=== PATIENT | male | born 1985 | race Hispanic/Latino ===

== ENCOUNTER 2020-05-20 07:50 | Inpatient (IN) | payer OTHER ==
--- NOTE | 2020-05-20 08:29 | Event Note ---
ED Screening Note Date of service: 05/20/20 Time: 08:28 ED Screening Note: Pleasant 35-year-old male with a past medical history of GERD, hypertension, anxiety who presents to the ER with chief complaint of a few months of urinary frequency, polydipsia, generalized weakness. He also reports he started having black stools yesterday. In triage she is tachycardic and diaphoretic. This initial assessment/diagnostic orders/clinical plan/treatment(s) is/are subject to change based on patients health status, clinical progression and re- assessment by fellow clinical providers in the ED. Further treatment and workup at subsequent clinical providers discretion. Patient/guardian urged not to elope from the ED as their condition may be serious if not clinically assessed and managed. Initial orders include: CBC, CMP, type and screen, urinalysis, lipase, EKG, troponin, chest x-ray, normal saline fluid bolus
[2020-05-20] MEDS ORDERED: SODIUM CHLORIDE 0.9% 1000 ML 1,000 ML IV ONE ×2 (08:30→10:23)
[2020-05-20] MEDS ORDERED: PANTOPRAZOLE 40 MG INJ IV ONE (08:53)
[2020-05-20 09:11] LABS: Basophils # (Auto) 0.2 K/mm3 (0.0-0.1); Eosinophils % (Auto) 0.7 % (0.0-4.3); Monocytes # (Auto) 0.8 K/mm3 (0.0-0.8)
--- NOTE | 2020-05-20 09:15 | Emergency Department Report ---
ED General Adult HPI - General Chief complaint: Hyperglycemia Stated complaint: WEAKNESS Time Seen by Provider: 05/20/20 08:49 Source: patient, EMS Mode of arrival: Wheelchair Limitations: Physical Limitation - History of Present Illness Initial comments: This is a 35-year old morbidly obese male who states that he has no prior history of diabetes. However, he does complain of the polys for several weeks if not months. He states that he went to a free clinic about 3 weeks ago but was not told he was diabetic nor having elevated blood sugar. He reports over the last 24 hours several bouts of black stools. 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 He claims he was not on Lovenox at the time. However Lovenox is currently listed as an allergy. He is giving a limited history and that will require further investigation. He is not currently on anticoagulation. He denies a history of peptic ulcer disease. He states his previous black stool was related to his mesenteric thrombosis. He had a ciliotomy and several inches of small intestine removed. Patient has been short of breath as well over the past 24 hours. He has been sweaty and thinks he has had a fever but does not have a thermometer. -: days(s) (Black stools and shortness of breath for 1 day ), week(s) (Polys for weeks) Location: abdomen (States he has swelling about his surgical incision but is not complaining of acute pain specifically there) Consistency: intermittent Improves with: none Worsens with: none Associated Symptoms: diaphoresis, fever/chills, shortness of breath, weakness. denies: nausea/vomiting Treatments Prior to Arrival: none - Related Data Allergies Allergy/AdvReac Type Severity Reaction Status Date / Time Cephalosporins Allergy Hives Verified 05/20/20 08:36 enoxaparin [From Lovenox] Allergy Rash Verified 05/20/20 08:36 ED Review of Systems ROS: Stated complaint: WEAKNESS Other details as noted in HPI Constitutional: chills, fever Eyes: denies: eye pain, vision change ENT: denies: ear pain, throat pain Respiratory: shortness of breath. denies: cough Cardiovascular: denies: chest pain, palpitations Endocrine: no symptoms reported, increased hunger, increased thirst, increased urine Gastrointestinal: abdominal pain (Near the surgical incision), diarrhea, melena. denies: nausea Genitourinary: frequency. denies: urgency, dysuria Musculoskeletal: denies: back pain, joint swelling, arthralgia Skin: denies: rash, lesions Neurological: denies: headache, weakness, paresthesias Psychiatric: anxiety. denies: depression Hematological/Lymphatic: denies: easy bleeding, easy bruising ED Past Medical Hx - Past Medical History Previous Medical History?: Yes Hx Hypertension: Yes Hx GERD: Yes Hx Asthma: Yes Additional medical history: Congenital adrenal hyperplasia, Anxiety, Sleep apnea - Surgical History Past Surgical History?: Yes Additional Surgical History: Mesenteric venous thrombosis 2016 - Social History Smoking Status: Never Smoker Substance Use Type: None ED Physical Exam - General Limitations: Physical Limitation General appearance: obese, other (Sweaty) - Head Head exam: Present: atraumatic, normocephalic - Eye Eye exam: Present: PERRL, EOMI. Absent: scleral icterus - ENT ENT exam: Present: mucous membranes dry, other (Conjunctiva pale) - Neck Neck exam: Absent: tenderness, meningismus - Respiratory Respiratory exam: Present: normal lung sounds bilaterally, other (Tachypneic) - Cardiovascular Cardiovascular Exam: Present: tachycardia. Absent: systolic murmur, diastolic murmur - GI/Abdominal GI/Abdominal exam: Present: soft, distended (Somewhat), normal bowel sounds, hernia (Incisional hernia which is tender but probably reducible). Absent: tenderness (No diffuse abdominal tenderness), guarding, rebound, rigid - Rectal Rectal exam: Present: normal inspection, normal rectal tone, heme (+) stool, black stool - Extremities Exam Extremities exam: Present: other (Pretibial edema). Absent: calf tenderness - Back Exam Back exam: Present: normal inspection (Limited exam) - Neurological Exam Neurological exam: Present: alert, oriented X3, CN II-XII intact (As tested). Absent: motor sensory deficit - Psychiatric Psychiatric exam: Present: agitated (Mildly), anxious - Skin Skin exam: Present: diaphoretic (Somewhat), pallor ED Course Vital Signs 05/20/20 05/20/20 05/20/20 08:30 09:16 09:31 Temperature 97.6 F Pulse Rate 127 H 121 H 120 H Respiratory 22 27 H Rate Blood Pressure 113/74 116/70 O2 Sat by Pulse 98 97 97 Oximetry - Reevaluation(s) Reevaluation #1: We will be initiating IV fluids giving Protonix. Screening for sepsis. CT of the abdomen and pelvis is planned. GI consult when adequate data. Obviously admission is anticipated. 05/20/20 09:19 Reevaluation #2: Saline bolus. Sepsis screening. White count is essentially normal. Decision to utilize empiric antibiotics is deferred to the hospitalist. Discussed with Dr. Dumont. Patient to be admitted to the IMCU. GI consultation. I am going to order a CT of the abdomen and pelvis with contrast considering the patient's apparent incisional hernia and history of mesenteric thrombosis. 05/20/20 11:14 05/20/20 11:15 ED Medical Decision Making - Lab Data Result diagrams: 05/20/20 08:38 05/20/20 09:00 Laboratory Results - last 24 hr 05/20/20 05/20/20 05/20/20 08:38 08:38 08:38 WBC 10.9 RBC 4.47 Hgb 15.1 Hct 43.4 MCV 97 H MCH 34 H MCHC 35 H RDW 14.3 Plt Count 511 H Lymph % (Auto) 17.2 [place]uther[place] % (Auto) 7.0 Eos % (Auto) 0.7 Baso % (Auto) 2.2 H Lymph # (Auto) 1.9 [place]utherford # (Auto) 0.8 Eos # (Auto) 0.1 Baso # (Auto) 0.2 H Seg Neutrophils % 72.9 H Seg Neutrophils # 7.9 H PT 12.7 INR 0.96 APTT 28.6 VBG pH Sodium Potassium Chloride Carbon Dioxide Anion Gap BUN Creatinine Estimated GFR BUN/Creatinine Ratio Glucose Ketones Quantitative Calcium Magnesium Total Bilirubin Direct Bilirubin Indirect Bilirubin AST ALT Alkaline Phosphatase Total Creatine Kinase CK-MB (CK-2) CK-MB (CK-2) Rel Index Troponin T < 0.010 NT-Pro-B Natriuret Pep Total Protein Albumin Albumin/Globulin Ratio Lipase 16 Blood Type Antibody Screen 05/20/20 05/20/20 05/20/20 08:38 09:00 09:00 WBC RBC Hgb Hct MCV MCH MCHC RDW Plt Count Lymph % (Auto) [place]uther[place] % (Auto) Eos % (Auto) Baso % (Auto) Lymph # (Auto) [place] # (Auto) Eos # (Auto) Baso # (Auto) Seg Neutrophils % Seg Neutrophils # PT INR APTT VBG pH Sodium 114 L* Potassium 7.0 H* Chloride 72.9 L Carbon Dioxide 8 L* Anion Gap 40 BUN 37 H Creatinine 1.2 Estimated GFR > 60 BUN/Creatinine Ratio 31 Glucose 552 H* Ketones Quantitative Moderate Calcium 9.7 Magnesium 1.90 Total Bilirubin 0.50 Direct Bilirubin 0.4 H Indirect Bilirubin 0.1 AST < 5 L ALT < 5 L Alkaline Phosphatase 155 H Total Creatine Kinase < 7 L CK-MB (CK-2) < 1.0 CK-MB (CK-2) Rel Index 0.0 Troponin T NT-Pro-B Natriuret Pep 53.42 Total Protein 7.9 Albumin 3.8 L Albumin/Globulin Ratio 0.9 Lipase Blood Type O NEGATIVE Antibody Screen Negative 05/20/20 09:00 WBC RBC Hgb Hct MCV MCH MCHC RDW Plt Count Lymph % (Auto) Ruther[place] % (Auto) Eos % (Auto) Baso % (Auto) Lymph # (Auto) [place] # (Auto) Eos # (Auto) Baso # (Auto) Seg Neutrophils % Seg Neutrophils # PT INR APTT VBG pH 7.240 L Sodium Potassium Chloride Carbon Dioxide Anion Gap BUN Creatinine Estimated GFR BUN/Creatinine Ratio Glucose Ketones Quantitative Calcium Magnesium Total Bilirubin Direct Bilirubin Indirect Bilirubin AST ALT Alkaline Phosphatase Total Creatine Kinase CK-MB (CK-2) CK-MB (CK-2) Rel Index Troponin T NT-Pro-B Natriuret Pep Total Protein Albumin Albumin/Globulin Ratio Lipase Blood Type Antibody Screen - EKG Data -: EKG Interpreted by Me EKG shows normal: sinus rhythm Rate: tachycardia - EKG Data Interpretation: other (Peaked T waves are suggestive of hyperkalemia) - Radiology Data Radiology results: image reviewed (Chest x-ray no acute process) Critical Care Time: Yes Critical care time in (mins) excluding proc time.: 70 Critical care attestation.: If time is entered above; I have spent that time in minutes in the direct care of this critically ill patient, excluding procedure time. ED Disposition Clinical Impression: Hyponatremia, Upper GI bleeding DKA (diabetic ketoacidoses) Qualifiers: Diabetes mellitus type: type 2 Diabetes mellitus complication detail: without coma Qualified Code(s): E11.10 - Type 2 diabetes mellitus with ketoacidosis without coma Incisional hernia Qualifiers: Obstruction and gangrene presence: without obstruction or gangrene Qualified Code(s): K43.2 - Incisional hernia without obstruction or gangrene; K43.91 - Incisional hernia, without obstruction or gangrene Disposition: 09 OP ADMIT IP TO THIS HOSP Is pt being admited?: Yes Does the pt Need Aspirin: No Condition: Stable Instructions: Diabetic Ketoacidosis (ED) Time of Disposition: 11:18
--- NOTE | 2020-05-20 09:16 | XRay Report ---
CHEST 2 VIEWS INDICATION / CLINICAL INFORMATION: weakness. COMPARISON: None available. FINDINGS: SUPPORT DEVICES: None. HEART / MEDIASTINUM: No significant abnormality. LUNGS / PLEURA: Clear lungs. No significant pleural effusion. No pneumothorax. ADDITIONAL FINDINGS: No significant additional findings. IMPRESSION: 1. No acute abnormality of the chest. Signer Name: Sunil Luciano MD Signed: 05/20/2020 9:11 AM Workstation Name: [id number]
[2020-05-20 09:22] LABS: INR 0.96 (0.87-1.13)
[2020-05-20 09:23] LABS: Partial Thromboplastin Time 28.6 Sec. (24.2-36.6)
[2020-05-20 09:28] LABS: Hematocrit 43.4 % (35.5-45.6); Hemoglobin 15.1 gm/dl (11.8-15.2); Mean Corpuscular Volume 97 fl (84-94); Red Blood Count 4.47 M/mm3 (3.65-5.03)
[2020-05-20 09:29] LABS: Basophils % (Auto) 2.2 % (0.0-1.8); Eosinophils # (Auto) 0.1 K/mm3 (0.0-0.4); Lymphocytes # (Auto) 1.9 K/mm3 (1.2-5.4); Lymphocytes % (Auto) 17.2 % (13.4-35.0); Mean Corpuscular HGB Conc 35 % (32-34); Platelet Count 511 K/mm3 (140-440); Red Cell Distribution Width 14.3 % (13.2-15.2)
[2020-05-20 09:52] LABS: Albumin 3.8 g/dL (3.9-5); BUN/Creatinine Ratio 31; Bilirubin,Direct 0.4 mg/dL (0-0.2); Blood Urea Nitrogen 37 mg/dL (9-20); Calcium 9.7 mg/dL (8.4-10.2); Creatine Kinase MB < 1.0 ng/mL (0.0-4.0); Hemolysis Index 100
[2020-05-20 10:13] LABS: Alanine Aminotransferase < 5 units/L (7-56)
[2020-05-20] MEDS ORDERED: INSULIN REGULAR, HUMAN 100 UNITS/1 ML IV ONE (10:25)
[2020-05-20] MEDS ORDERED: INSULIN REGULAR, HUMAN 100 UNITS in SODIUM CHLORIDE 0.9% 99 ML IV SCH (11:00)
[2020-05-20 12:38] LABS: BUN/Creatinine Ratio 30
[2020-05-20 12:54] LABS: Blood Urea Nitrogen 36 mg/dL (9-20); Calcium 8.5 mg/dL (8.4-10.2); Hemolysis Index 88
--- NOTE | 2020-05-20 13:07 | Cat Scan Report ---
CT ABDOMEN AND PELVIS WITH CONTRAST INDICATION: Incisional hernia, DKA, history of mesenteric thrombosis CONTRAST: 100 cc Omnipaque 300 IV COMPARISON: None available. All CT scans at this location are performed using CT dose reduction for ALARA by means of automated e xposure control. NOTE: Resolution is decreased and artifact is introduced by the patient's size. FINDINGS: Lung bases are clear. The distal esophagus shows possible diffuse wall thickening without a defined mass. No pneumoperitoneum is seen. No free fluid is noted. No lymphadenopathy is seen. No focal inflammator y changes are noted. Liver is massively enlarged and shows fatty infiltration. I do not clearly see an hepatic mass though density is mildly heterogenous. Hepatic length is 30.4 cm. Spleen is elongated and has a length of 1 6.7 cm without significant focal lesion. I see no abnormalities of the gallbladder, bile ducts, or pa ncreas. Kidneys appear within normal limits. No urinary obstructive changes are seen. Appendix is not visualized. Surgical changes are seen in small bowel in the anterior mid abdomen with focal dilatation likely related to the surgery. I do not see significant evidence of bowel obstructi on. Large and unusually shaped lobular and elongated masses are seen involving both adrenal glands, left greater than right. These masses have multiple septations and are largely fat density though with sof t tissue components. There may be small cystic components on the right. The left sided lesion has a v ashlee complex shaped but measures approximately 23 cm in greatest diameter. The right lesion also has a complex shape but measures approximately 14 cm in greatest diameter. No other abdominal masses are s een. I do not see invasion of adjacent structures by the adrenal lesions though on the right there ar e some areas where there is slight loss of the interface between the mass in the liver. IMPRESSION: 1. Huge bilateral adrenal masses are seen. Though these are predominantly fat density there is a sign ificant soft tissue component and thickened septae noted bilaterally. Possibly these could represent extremely unusual huge adrenal myelolipomata but are much larger than usually seen and the shape is q uite unusual for both. Adjacent structures appear to be displaced though not definitely invaded as di scussed above. No obvious metastatic disease is seen. Pheochromocytoma can have fat internally though usually not this prominently. Other adrenal lesions can occasionally have fat density but not predom inantly. Just based on the size and the lack of clear metastatic disease or invasion I suspect these are benign but cannot state that with complete certainty. 2. Massive hepatomegaly with somewhat heterogenous fatty infiltration. I cannot completely exclude th e possibility of a hypodense lesion, particularly in the upper portion of the right lobe, but this ma y just represent fatty infiltration. Ultrasound may be useful. 3. Mild splenic prominence Signer Name: Xavier Harding MD Signed: 05/20/2020 1:00 PM Workstation Name: [id number]
[2020-05-20] MEDS ORDERED: SODIUM CHLORIDE 0.9% 1000 ML 1,000 ML ONE (15:10)
[2020-05-20 15:40] LABS: BUN/Creatinine Ratio 31; Blood Urea Nitrogen 34 mg/dL (9-20); Calcium 8.5 mg/dL (8.4-10.2); Hemolysis Index 62
[2020-05-20 17:21] LABS: BUN/Creatinine Ratio 28; Blood Urea Nitrogen 34 mg/dL (9-20); Hemolysis Index 44
[2020-05-20] MEDS ORDERED: POTASSIUM CHLORIDE 10 MEQ 10 MEQ/100 ML BAG IV SCH (18:00)
[2020-05-20] MEDS ORDERED: D5W/0.45% NACL/KCL 20 MEQ 20 MEQ/1,000 ML BAG IV SCH (18:00)
[2020-05-20 18:26] LABS: BUN/Creatinine Ratio 29; Blood Urea Nitrogen 35 mg/dL (9-20); Calcium 8.5 mg/dL (8.4-10.2); Hemolysis Index 46
--- NOTE | 2020-05-20 18:40 | History and Physical Report ---
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.Also has Congenital Adrenal hyperplasia No exposure to galloway virus - Past Medical History Previous Medical History?: Yes --Hypertension: Yes --GERD: Yes --Asthma: Yes Additional medical history: Congenital adrenal hyperplasia, Anxiety, Sleep apnea - Surgical History Past Surgical History?: Yes Additional Surgical History: Mesenteric venous thrombosis 2015 - Social History Smoking Status: Never Smoker Substance Use Type: None Review of Systems ROS: Stated complaint: WEAKNESS Other details as noted in HPI Constitutional: chills, fever Eyes: denies: eye pain, vision change ENT: denies: ear pain, throat pain Respiratory: shortness of breath. denies: cough Cardiovascular: denies: chest pain, palpitations Endocrine: no symptoms reported, increased hunger, increased thirst, increased urine Gastrointestinal: abdominal pain (Near the surgical incision), diarrhea, melena. denies: nausea Genitourinary: frequency. denies: urgency, dysuria Musculoskeletal: denies: back pain, joint swelling, arthralgia Skin: denies: rash, lesions Neurological: denies: headache, weakness, paresthesias Psychiatric: anxiety. denies: depression Hematological/Lymphatic: denies: easy bleeding, easy bruising Medications and Allergies Allergies Allergy/AdvReac Type Severity Reaction Status Date / Time Cephalosporins Allergy Intermediate Hives Verified 05/21/20 00:23 enoxaparin [From Lovenox] Allergy Rash Verified 05/20/20 08:36 Home Medications Medication Instructions Recorded Confirmed Last Taken Type No Known Home Medications [No 05/20/20 05/20/20 Unknown History Reported Home Medications] Active Meds: Active Medications Insulin Human Regular 100 (units/ Sodium Chloride) 100 mls @ 1 mls/hr IV TITR EMANUEL; Protocol Last Titration: 05/20/20 17:35 Dose: 11 units/hr, 11 mls/hr Documented by: Insulin Human Regular 100 (units/ Sodium Chloride) 100 mls @ 1 mls/hr IV TITR EMANUEL; Protocol Potassium Chloride (Kcl 10meq/100ml) 10 meq in 100 mls @ 100 mls/hr IV Q1H EMANUEL Stop: 05/20/20 21:59 Sodium Chloride (Nacl 0.9% 1000 Ml) 1,000 mls @ 125 mls/hr IV DIRECT EMANUEL Sodium Chloride (Sodium Chloride 0.9% 10 Ml Flush Syringe) 10 ml IV PRN NR Exam - Constitutional Vitals: Temp Pulse Resp BP Pulse Ox 97.6 F 118 H 27 H 115/68 98 05/20/20 08:30 05/20/20 11:45 05/20/20 16:45 05/20/20 16:45 05/20/20 16:45 General appearance: Present: mild distress, well-nourished - EENT Eyes: Present: PERRL ENT: hearing intact, clear oral mucosa, other (Tongue dry) - Neck Neck: Present: supple, normal ROM - Respiratory Respiratory effort: normal Respiratory: bilateral: CTA - Cardiovascular Heart rate: 78 Rhythm: regular Heart Sounds: Present: S1 & S2. Absent: rub, click - Extremities Extremities: pulses symmetrical, No edema Peripheral Pulses: within normal limits - Abdominal General gastrointestinal: Present: soft, non-tender, non-distended, normal bowel sounds Male genitourinary: Present: normal - Integumentary Integumentary: Present: clear, warm, dry - Musculoskeletal Musculoskeletal: gait normal, strength equal bilaterally - Psychiatric Psychiatric: appropriate mood/affect, intact judgment & insight - Neurologic Neurologic: CNII-XII intact, moves all extremities HEART Score - HEART Score Troponin: Troponin T < 0.010 ng/mL (0.00-0.029) 05/20/20 08:38 Results - Labs CBC & Chem 7: 05/21/20 14:32 05/21/20 14:32 Labs: Laboratory Last Values WBC 10.9 K/mm3 (4.5-11.0) 05/20/20 08:38 RBC 4.47 M/mm3 (3.65-5.03) 05/20/20 08:38 Hgb 15.1 gm/dl (11.8-15.2) 05/20/20 08:38 Hct 43.4 % (35.5-45.6) 05/20/20 08:38 MCV 97 fl (84-94) H 05/20/20 08:38 MCH 34 pg (28-32) H 05/20/20 08:38 MCHC 35 % (32-34) H 05/20/20 08:38 RDW 14.3 % (13.2-15.2) 05/20/20 08:38 Plt Count 511 K/mm3 (140-440) H 05/20/20 08:38 Lymph % (Auto) 17.2 % (13.4-35.0) 05/20/20 08:38 [place] % (Auto) 7.0 % (0.0-7.3) 05/20/20 08:38 Eos % (Auto) 0.7 % (0.0-4.3) 05/20/20 08:38 Baso % (Auto) 2.2 % (0.0-1.8) H 05/20/20 08:38 Lymph # (Auto) 1.9 K/mm3 (1.2-5.4) 05/20/20 08:38 [place] # (Auto) 0.8 K/mm3 (0.0-0.8) 05/20/20 08:38 Eos # (Auto) 0.1 K/mm3 (0.0-0.4) 05/20/20 08:38 Baso # (Auto) 0.2 K/mm3 (0.0-0.1) H 05/20/20 08:38 Seg Neutrophils % 72.9 % (40.0-70.0) H 05/20/20 08:38 Seg Neutrophils # 7.9 K/mm3 (1.8-7.7) H 05/20/20 08:38 PT 12.7 Sec. (12.2-14.9) 05/20/20 08:38 INR 0.96 (0.87-1.13) 05/20/20 08:38 APTT 28.6 Sec. (24.2-36.6) 05/20/20 08:38 VBG pH 7.240 (7.320-7.420) L 05/20/20 09:00 Sodium 117 mmol/L (137-145) L* 05/20/20 16:50 Potassium 6.1 mmol/L (3.6-5.0) H* 05/20/20 16:50 Chloride 81.0 mmol/L (98-107) L 05/20/20 16:50 Carbon Dioxide 7 mmol/L (22-30) L* 05/20/20 16:50 Anion Gap 35 mmol/L 05/20/20 16:50 BUN 34 mg/dL (9-20) H 05/20/20 16:50 Creatinine 1.2 mg/dL (0.8-1.3) 05/20/20 16:50 Estimated GFR > 60 ml/min 05/20/20 17:45 BUN/Creatinine Ratio 29 % 05/20/20 17:45 Glucose 425 mg/dL (75-100) H 05/20/20 16:50 POC Glucose 420 mg/dL (70-105) H 05/20/20 17:14 Ketones Quantitative Moderate (Negative) 05/20/20 09:00 Calcium 9.0 mg/dL (8.4-10.2) 05/20/20 16:50 Magnesium 1.90 mg/dL (1.7-2.3) 05/20/20 09:00 Total Bilirubin 0.50 mg/dL (0.1-1.2) 05/20/20 09:00 Direct Bilirubin 0.4 mg/dL (0-0.2) H 05/20/20 09:00 Indirect Bilirubin 0.1 mg/dL 05/20/20 09:00 AST < 5 units/L (5-40) L 05/20/20 09:00 ALT < 5 units/L (7-56) L 05/20/20 09:00 Alkaline Phosphatase 155 units/L (35-129) H 05/20/20 09:00 Total Creatine Kinase < 7 units/L (55-170) L 05/20/20 09:00 CK-MB (CK-2) < 1.0 ng/mL (0.0-4.0) 05/20/20 09:00 CK-MB (CK-2) Rel Index 0.0 (0-4) 05/20/20 09:00 Troponin T < 0.010 ng/mL (0.00-0.029) 05/20/20 08:38 NT-Pro-B Natriuret Pep 53.42 pg/mL (0-450) 05/20/20 09:00 Total Protein 7.9 g/dL (6.3-8.2) 05/20/20 09:00 Albumin 3.8 g/dL (3.9-5) L 05/20/20 09:00 Albumin/Globulin Ratio 0.9 % 05/20/20 09:00 Lipase 16 units/L (13-60) 05/20/20 08:38 Blood Type O NEGATIVE 05/20/20 08:38 Antibody Screen Negative 05/20/20 08:38 Short CBC 05/20/20 Range/Units 08:38 WBC 10.9 (4.5-11.0) K/mm3 Hgb 15.1 (11.8-15.2) gm/dl Hct 43.4 (35.5-45.6) % Plt Count 511 H (140-440) K/mm3 BMP 05/20/20 05/20/20 05/20/20 09:00 12:12 14:46 Sodium 114 L* 119 L* 118 L* Potassium 7.0 H* 5.4 H D 6.1 H* Chloride 72.9 L 81.8 L 82.0 L Carbon Dioxide 8 L* 7 L* 6 L* BUN 37 H 36 H 34 H Creatinine 1.2 1.2 1.1 Glucose 552 H* 467 H 445 H Calcium 9.7 8.5 8.5 05/20/20 05/20/20 05/21/20 16:50 17:45 02:28 Sodium 117 L* 119 L* 125 L D Potassium 6.1 H* 5.7 H 5.4 H Chloride 81.0 L 84.2 L 91.6 L Carbon Dioxide 7 L* 5 L* 12 L D BUN 34 H 35 H 46 H Creatinine 1.2 1.2 1.4 H Glucose 425 H 455 H 198 H Calcium 9.0 8.5 8.8 Cardiac Enzymes 05/20/20 05/20/20 Range/Units 08:38 09:00 Total Creatine Kinase < 7 L (55-170) units/L CK-MB (CK-2) < 1.0 (0.0-4.0) ng/mL Troponin T < 0.010 (0.00-0.029) ng/mL Liver Function 05/20/20 Range/Units 09:00 Total Bilirubin 0.50 (0.1-1.2) mg/dL Direct Bilirubin 0.4 H (0-0.2) mg/dL AST < 5 L (5-40) units/L ALT < 5 L (7-56) units/L Alkaline Phosphatase 155 H (35-129) units/L Albumin 3.8 L (3.9-5) g/dL Urine 05/20/20 Range/Units 18:28 Urine Color Yellow (Yellow) Urine pH 5.0 (5.0-7.0) Ur Specific [place] 1.029 (1.003-1.030) Urine Protein 30 mg/dl (Negative) mg/dL Urine Glucose (UA) >=500 (Negative) mg/dL Microbiology: Microbiology 05/20/20 10:12 Peripheral/Venous Blood Culture - Preliminary Culture in Progress 05/20/20 10:12 Peripheral/Venous Blood Culture - Preliminary Culture in Progress - Imaging and Cardiology Chest x-ray: report reviewed (NAF) Imaging and Cardiology: CT Abdomen FINDINGS: Lung bases are clear. The distal esophagus shows possible diffuse wall thickening without a defined mass. No pneumoperitoneum is seen. No free fluid is noted. No lymphadenopathy is seen. No focal inflammatory changes are noted. Liver is massively enlarged and shows fatty infiltration. I do not clearly see an hepatic mass though density is mildly heterogenous. Hepatic length is 30.4 cm. Spleen is elongated and has a length of 16.7 cm without significant focal lesion. I see no abnormalities of the gallbladder, bile ducts, or pancreas. Kidneys appear within normal limits. No urinary obstructive changes are seen. Appendix is not visualized. Surgical changes are seen in small bowel in the anterior mid abdomen with focal dilatation likely related to the surgery. I do not see significant evidence of bowel obstruction. Large and unusually shaped lobular and elongated masses are seen involving both adrenal glands, left greater than right. These masses have multiple septations and are largely fat density though with soft tissue components. There may be small cystic components on the right. The left sided lesion has a very complex shaped but measures approximately 23 cm in greatest diameter. The right lesion also has a complex shape but measures approximately 14 cm in greatest diameter. No other abdominal masses are seen. I do not see invasion of adjacent structures by the adrenal lesions though on the right there are some areas where there is slight loss of the interface between the mass in the liver. IMPRESSION: 1. Huge bilateral adrenal masses are seen. Though these are predominantly fat density there is a significant soft tissue component and thickened septae noted bilaterally. Possibly these could represent extremely unusual huge adrenal myelolipomata but are much larger than usually seen and the shape is quite unusual for both. Adjacent structures appear to be displaced though not definitely invaded as discussed above. N -- o obvious metastatic disease is seen. Pheochromocytoma can have fat internally though usually not this prominently. Other adrenal lesions c an occasionally have fat density but not predominantly. Just based on the size and the lack of clear metastatic disease or invasion I suspect these are benign but cannot state that with complete certainty. 2. Massive hepatomegaly with somewhat heterogenous fatty infiltration. I cannot completely exclude the possibility of a hypodense lesion, particularly in the upper portion of the right lobe, but this may just represent fatty infiltration. Ultrasound may be useful. 3. Mild splenic prominence Signer Name: Xavier Harding MD Signed: 05/20/2020 1:00 PM Workstation Name: [id number] Assessment and Plan Assessment and plan: Critical care statement The high probability OF a clinically significant sudden or life-threatening deterioration of the cardiorespiratory system and endocrine system required my full and direct attention, intervention and postoperative management. The aggregate critical care time was 40 minutes. The time is in addition to time spent performing reported procedures but includes the followin: Data review and interpretation 2: Patient assessment and monitoring of vital signs 3: Documentation 4:: Medication orders and management Advance Directives: Yes (Full code) VTE prophylaxis?: Chemical Plan of care discussed with patient/family: Yes - Patient Problems (1) DKA (diabetic ketoacidoses) Current Visit: Yes Status: Acute Qualifiers: Diabetes mellitus type: type 2 Diabetes mellitus complication detail: without coma Qualified Code(s): E11.10 - Type 2 diabetes mellitus with ketoacidosis without coma Plan to address problem: DKA protocol IV insulin and IV fluids per protocol High potassium to be treated Structurer consult requested (2) TERRA (acute kidney injury) Current Visit: Yes Status: Acute Plan to address problem: Sec to volume depletion and VMN IV Fluids for now (3) Hyponatremia Current Visit: Yes Status: Acute Plan to address problem: Severe Should correct with correction of BG (4) Hyperkalemia Current Visit: Yes Status: Acute Plan to address problem: Treated Also should come down with IV insulin (5) Metabolic acidosis Current Visit: Yes Status: Acute Plan to address problem: Severe Improving (6) Adrenal hyperplasia, congenital Current Visit: Yes Status: Chronic Plan to address problem: Refer to Endocrinology Cortisol level ordered (7) Hepatomegaly Current Visit: Yes Status: Chronic Plan to address problem: Fatty infiltration (8) HTN (hypertension) Current Visit: Yes Status: Chronic Qualifiers: Hypertension type: essential hypertension Qualified Code(s): I10 - Essential (primary) hypertension Plan to address problem: Normotensive Will start antihypertensives if BP trending up (9) Obstructive sleep apnea Current Visit: Yes Status: Chronic Plan to address problem: CPAP/BiPAP as necessary especially nighttime (10) DVT prophylaxis Current Visit: Yes Status: Acute Plan to address problem: On Heparin and GI prophylaxis
[2020-05-20 19:52] LABS: Bilirubin,Urine NEG (Negative); Blood,Urine NEG (Negative); Color,Urine Yellow (Yellow); Urobilinogen,Urine < 2.0 mg/dL (<2.0)
[2020-05-20] MEDS ORDERED: LORazepam 2 MG/ML VIAL IV SCH (21:05)
[2020-05-20] MEDS: SODIUM CHLORIDE 0.9% 1000 ML 1,000 ML IV SCH (21:50)
[2020-05-20] MEDS: INSULIN REGULAR, HUMAN 100 UNITS in SODIUM CHLORIDE 0.9% 99 ML IV SCH (21:50)
[2020-05-21] MEDS: LORazepam 2 MG/ML VIAL IV PRN ×2 (01:21→20:11)
[2020-05-21 03:03] LABS: Calcium 8.8 mg/dL (8.4-10.2)
[2020-05-21] MEDS ORDERED: CALCIUM GLUCONATE 2,000 MG in SODIUM CHLORIDE 0.9% 100 ML IV ONE (04:21)
[2020-05-21] MEDS: INSULIN REGULAR, HUMAN 100 UNITS in SODIUM CHLORIDE 0.9% 99 ML IV SCH ×2 (05:16→13:09)
[2020-05-21] MEDS: SODIUM CHLORIDE 0.9% 1000 ML 1,000 ML IV SCH ×2 (05:20→15:11)
[2020-05-21] MEDS ORDERED: SODIUM CHLORIDE 0.9% 1000 ML 1,000 ML IV ONE ×2 (07:41→18:53)
--- NOTE | 2020-05-21 07:49 | Progress Note ---
Assessment and Plan Assessment and plan: --DKA (diabetic ketoacidoses) Current Visit: Yes Status: Acute Plan to address problem: On DKA pathway, Insulin drip per protocol Anion gap trending down, still high 27 Severe metabolic acidosis, slightly improved since admission Continue IV hydration, additional 1 L normal saline bolus now Closely monitor electrolytes, replenish as needed Hemoglobin A1c 17.2 Diabetic education, Diabetic diet education prior to discharge Possible home health nurse for disease monitoring at the time of discharge Building Maintenance Technician consulted --Severe metabolic acidosis; due to DKA Current Visit: Yes Status: Acute Plan to address problem: Vigorous IV hydration, Treat the underlying DKA Closely monitor --Hyponatremia/pseudohyponatremia Current Visit: Yes Status: Acute Plan to address problem: Due to hyperglycemia, as blood sugars improve, sodium levels improve Treat the underlying DKA -- Hyperkalemia Current Visit: Yes Status: Acute Plan to address problem: Closely monitor electrolytes Treat the underlying DKA Kayexalate if needed --Melena/upper GI bleeding Current Visit: Yes Status: Acute Plan to address problem: patient is already n.p.o. status, ER consulted GI Closely monitor H&H, transfuse as needed Follow GI evaluation and recommendations Avoid aspirin and NSAID group of medications --TRERA (acute kidney injury) Current Visit: Yes Status: Acute Plan to address problem: Due to vasomotor nephropathy/dehydration. Reduce IV hydration, monitor renal function Avoid nephrotoxins, nephrology consult if no improvement, IV Protonix, --h/o Adrenal hyperplasia, congenital Current Visit: Yes Status: Chronic Plan to address problem: Noncompliant patient , consider steroids Patient will follow with his veterinary parasitologist upon discharge No endocrinology service available --Hepatomegaly on CT abdomen Current Visit: Yes Status: Chronic Plan to address problem: Fatty infiltration, GI consulted, check ultrasound of the abdomen Low transaminases -- HTN (hypertension) Current Visit: Yes Status: Chronic Plan to address problem: Well-controlled, closely monitor. Possible obstructive sleep apnea As needed hydralazine --Morbid obesity; BMI 65.2; Current Visit: Yes Status: Chronic Plan to address problem: --possible obstructive sleep apnea: Current Visit: Yes Status: Chronic Plan to address problem: CPAP/BiPAP at night and as needed during daytime Patient needs outpatient sleep study if it is not already done --DVT prophylaxis Current Visit: Yes Status: Acute . Plan to address problem: Patient is allergic to Enoxaparin SCDs We will closely monitor the patient and adjust the management as needed Plan of care reviewed with the patient and his nurse Critical care time 50 minutes The high probability of a clinically significant, sudden or life threatening deterioration of the [metabolic, endocrine, GI and renal] system(s) required my full and direct attention, intervention and personal management. The aggregate critical care time was [50] minutes. This time is in addition to time spent performing reported procedures but includes the following: [x] Data Review and interpretation [x] Patient assessment and monitoring of vital signs [x] Documentation [x] Medication orders and management History Interval history: I have seen and examined the patient at the bedside in ICU this morning . Patient's chart, tests and reports, medications reviewed Patient is PUI, I have followed strict isolation precautions and PPE protocols per COVID-19 guidelines. Patient was admitted with DKA, positive upper GI bleeding, severe metabolic acidosis on insulin drip Feels slightly better, asking for food In mild distress Vital signs reviewed Hospitalist Physical - Constitutional Vitals: Temp Pulse Resp BP Pulse Ox 98.4 F 114 H 21 128/66 96 05/21/20 07:23 05/21/20 05:03 05/21/20 05:03 05/21/20 05:00 05/21/20 05:03 General appearance: Present: mild distress, well-nourished, obese (Morbidly obese) - EENT Eyes: Present: PERRL, EOM intact - Neck Neck: Present: supple, normal ROM - Respiratory Respiratory effort: normal Respiratory: bilateral: diminished, negative: rales, rhonchi, wheezing - Cardiovascular Rhythm: regular Heart Sounds: Present: S1 & S2 - Extremities Extremities: no ischemia, No edema - Abdominal General gastrointestinal: soft, non-tender, non-distended, normal bowel sounds - Integumentary Integumentary: Present: clear, warm - Psychiatric Psychiatric: appropriate mood/affect, cooperative - Neurologic Neurologic: moves all extremities HEART Score - HEART Score Troponin: Troponin T < 0.010 ng/mL (0.00-0.029) 05/20/20 08:38 Results - Labs CBC & Chem 7: 05/22/20 05:05 05/22/20 05:05 Labs: Laboratory Last Values WBC 10.9 K/mm3 (4.5-11.0) 05/20/20 08:38 RBC 4.47 M/mm3 (3.65-5.03) 05/20/20 08:38 Hgb 15.1 gm/dl (11.8-15.2) 05/20/20 08:38 Hct 43.4 % (35.5-45.6) 05/20/20 08:38 MCV 97 fl (84-94) H 05/20/20 08:38 MCH 34 pg (28-32) H 05/20/20 08:38 MCHC 35 % (32-34) H 05/20/20 08:38 RDW 14.3 % (13.2-15.2) 05/20/20 08:38 Plt Count 511 K/mm3 (140-440) H 05/20/20 08:38 Lymph % (Auto) 17.2 % (13.4-35.0) 05/20/20 08:38 Lane % (Auto) 7.0 % (0.0-7.3) 05/20/20 08:38 Eos % (Auto) 0.7 % (0.0-4.3) 05/20/20 08:38 Baso % (Auto) 2.2 % (0.0-1.8) H 05/20/20 08:38 Lymph # (Auto) 1.9 K/mm3 (1.2-5.4) 05/20/20 08:38 Lane # (Auto) 0.8 K/mm3 (0.0-0.8) 05/20/20 08:38 Eos # (Auto) 0.1 K/mm3 (0.0-0.4) 05/20/20 08:38 Baso # (Auto) 0.2 K/mm3 (0.0-0.1) H 05/20/20 08:38 Seg Neutrophils % 72.9 % (40.0-70.0) H 05/20/20 08:38 Seg Neutrophils # 7.9 K/mm3 (1.8-7.7) H 05/20/20 08:38 PT 12.7 Sec. (12.2-14.9) 05/20/20 08:38 INR 0.96 (0.87-1.13) 05/20/20 08:38 APTT 28.6 Sec. (24.2-36.6) 05/20/20 08:38 VBG pH 7.240 (7.320-7.420) L 05/20/20 09:00 Sodium 125 mmol/L (137-145) L D 05/21/20 02:28 Potassium 5.4 mmol/L (3.6-5.0) H 05/21/20 02:28 Chloride 91.6 mmol/L (98-107) L 05/21/20 02:28 Carbon Dioxide 12 mmol/L (22-30) L D 05/21/20 02:28 Anion Gap 27 mmol/L 05/21/20 02:28 BUN 46 mg/dL (9-20) H 05/21/20 02:28 Creatinine 1.4 mg/dL (0.8-1.3) H 05/21/20 02:28 Estimated GFR 58 ml/min 05/21/20 02:28 BUN/Creatinine Ratio 33 % 05/21/20 02:28 Glucose 198 mg/dL (75-100) H 05/21/20 02:28 POC Glucose 193 mg/dL (70-105) H 05/21/20 03:10 Hemoglobin A1c 17.2 % (4-6) H 05/20/20 18:00 Ketones Quantitative Moderate (Negative) 05/20/20 09:00 Calcium 8.8 mg/dL (8.4-10.2) 05/21/20 02:28 Phosphorus 4.10 mg/dL (2.5-4.5) 05/20/20 18:00 Magnesium 1.80 mg/dL (1.7-2.3) 05/20/20 18:00 Total Bilirubin 0.50 mg/dL (0.1-1.2) 05/20/20 09:00 Direct Bilirubin 0.4 mg/dL (0-0.2) H 05/20/20 09:00 Indirect Bilirubin 0.1 mg/dL 05/20/20 09:00 AST < 5 units/L (5-40) L 05/20/20 09:00 ALT < 5 units/L (7-56) L 05/20/20 09:00 Alkaline Phosphatase 155 units/L (35-129) H 05/20/20 09:00 Total Creatine Kinase < 7 units/L (55-170) L 05/20/20 09:00 CK-MB (CK-2) < 1.0 ng/mL (0.0-4.0) 05/20/20 09:00 CK-MB (CK-2) Rel Index 0.0 (0-4) 05/20/20 09:00 Troponin T < 0.010 ng/mL (0.00-0.029) 05/20/20 08:38 NT-Pro-B Natriuret Pep 53.42 pg/mL (0-450) 05/20/20 09:00 Total Protein 7.9 g/dL (6.3-8.2) 05/20/20 09:00 Albumin 3.8 g/dL (3.9-5) L 05/20/20 09:00 Albumin/Globulin Ratio 0.9 % 05/20/20 09:00 Lipase 16 units/L (13-60) 05/20/20 08:38 Urine Color Yellow (Yellow) 05/20/20 18:28 Urine Turbidity Slightly-cloudy (Clear) 05/20/20 18: Urine pH 5.0 (5.0-7.0) 05/20/20 18: Ur Specific [place] 1.029 (1.003-1.030) 05/20/20 18: Urine Protein 30 mg/dl mg/dL (Negative) 05/20/20 18: Urine Glucose (UA) >=500 mg/dL (Negative) 05/20/20 18: Urine Ketones 20 mg/dL (Negative) 05/20/20 18: Urine Blood Neg (Negative) 05/20/20 18: Urine Nitrite Neg (Negative) 05/20/20 18: Urine Bilirubin Neg (Negative) 05/20/20 18: Urine Urobilinogen < 2.0 mg/dL (<2.0) 05/20/20 18: Ur Leukocyte Esterase Neg (Negative) 05/20/20 18: Urine WBC (Auto) 1.0 /HPF (0.0-6.0) 05/20/20 18: Urine RBC (Auto) 2.0 /HPF (0.0-6.0) 05/20/20 18: U Epithel Cells (Auto) 1.0 /HPF (0-13.0) 05/20/20 18:28 Blood Type O NEGATIVE 05/20/20 08:38 Antibody Screen Negative 05/20/20 08:38 Microbiology: Microbiology 05/20/20 10:12 Peripheral/Venous Blood Culture - Preliminary Culture in Progress 05/20/20 10:12 Peripheral/Venous Blood Culture - Preliminary Culture in Progress Voss/IV: Voiding Method Urinal Active Medications - Current Medications Current Medications: Generic Name Dose Route Start Last Admin Trade Name Freq PRN Reason Stop Dose Admin Insulin Human Regular 100 100 mls @ 1 mls/hr 05/20/20 18:00 05/21/20 07:09 units/ Sodium Chloride IV 14 units/hr TITR EMANUEL 14 mls/hr Titration Protocol 1 UNITS/HR Sodium Chloride 1,000 mls @ 125 mls/hr 05/20/20 18:15 05/21/20 05:20 Nacl 0.9% 1000 Ml IV 125 mls/hr DIRECT EMANUEL Administration Sodium Chloride 1,000 mls @ 999 mls/hr 05/21/20 07:41 Nacl 0.9% 1000 Ml IV 05/21/20 08:41 BOLUS ONE Lorazepam 1 mg 05/20/20 23:15 05/21/20 01:21 Lorazepam 2 Mg/Ml Vial IV 1 mg Q4H PRN Administration Agitation Sodium Chloride 10 ml 05/20/20 18:00 05/20/20 21:18 Sodium Chloride 0.9% 10 Ml Flush Syringe IV 10 ml PRN PRN Administration LINE FLUSH
[2020-05-21] MEDS: D5W/0.45% NACL 1,000 ML IV SCH ×2 (09:47→17:52)
--- NOTE | 2020-05-21 09:56 | Ultrasound Report ---
ULTRASOUND ABDOMEN, COMPLETE INDICATION: Hepatomegaly/adrenal masses on CT COMPARISON: CT abdomen and pelvis 05/20/2020 LIMITATIONS: Limited due to patient's body habitus FINDINGS: Pancreas: Poorly seen but no obvious abnormalities Abdominal Aorta: Not visualized IVC: Not visualized Liver: Prominent heterogenous fatty infiltration is seen. Hepatic length is measured at 18.2 cm but I believe this is an incomplete measurement and not accurate. A small area of central relative hypoech ogenicity measuring 2 cm may just represent relative sparing but is indeterminate. Gallbladder: Normal Bile ducts: Normal. Common Bile Duct measures 2 mm. Right Kidney: Normal Left Kidney: Not visualized Spleen: Not visualized Free fluid: None Additional Findings: Bilateral mostly hyperechoic but mixed echogenicity adrenal masses are seen juana uring Tyrer up to 13.5 cm on the right and 11.5 cm on the left. These correlate with the huge probabl e adrenal myelolipomata on CT. IMPRESSION: Findings similar to CT but less detail. Possible small focal lesion in the liver versus f atty sparing. Signer Name: Xavier Harding MD Signed: 05/21/2020 9:52 AM Workstation Name: [id number]
--- NOTE | 2020-05-21 11:27 | Consultation ---
History of Present Illness - Reason for Consult Consult date: 05/21/20 DKA - History of Present Illness 35 y/o, morbidly obese male with a new diagnosis of diabetes. Past History Past Surgical History: No surgical history Social history: no significant social history Family history: no significant family history Medications and Allergies Allergies Allergy/AdvReac Type Severity Reaction Status Date / Time Cephalosporins Allergy Intermediate Hives Verified 05/21/20 00:23 enoxaparin [From Lovenox] Allergy Rash Verified 05/20/20 08:36 Home Medications Medication Instructions Recorded Confirmed Last Taken Type No Known Home Medications [No 05/20/20 05/20/20 Unknown History Reported Home Medications] Active Meds: Active Medications Insulin Human Regular 100 (units/ Sodium Chloride) 100 mls @ 1 mls/hr IV TITR EMANUEL; Protocol Last Titration: 05/21/20 10:03 Dose: 10 units/hr, 10 mls/hr Documented by: Sodium Chloride (Nacl 0.9% 1000 Ml) 1,000 mls @ 125 mls/hr IV DIRECT EMANUEL Last Admin: 05/21/20 05:20 Dose: 125 mls/hr Documented by: Dextrose/Sodium Chloride (D5/0.45ns) 1,000 mls @ 125 mls/hr IV DIRECT EMANUEL Last Admin: 05/21/20 09:47 Dose: 125 mls/hr Documented by: Lorazepam (Lorazepam 2 Mg/Ml Vial) 1 mg IV Q4H PRN PRN Reason: Agitation Last Admin: 05/21/20 01:21 Dose: 1 mg Documented by: Sodium Chloride (Sodium Chloride 0.9% 10 Ml Flush Syringe) 10 ml IV PRN PRN PRN Reason: LINE FLUSH Last Admin: 05/20/20 21:18 Dose: 10 ml Documented by: Review of Systems All systems: negative Exam - Constitutional Vitals: Temp Pulse Resp BP Pulse Ox 98.4 F 109 H 23 128/66 93 05/21/20 07:23 05/21/20 08:18 05/21/20 10:00 05/21/20 05:00 05/21/20 08:18 Results - Labs CBC & Chem 7: 05/20/20 08:38 05/21/20 02:28 Labs: Abnormal lab results 05/20/20 05/20/20 05/20/20 Range/Units 12:12 13:52 14:46 Sodium 119 L* 118 L* (137-145) mmol/L Potassium 5.4 H D 6.1 H* (3.6-5.0) mmol/L Chloride 81.8 L 82.0 L (98-107) mmol/L Carbon Dioxide 7 L* 6 L* (22-30) mmol/L BUN 36 H 34 H (9-20) mg/dL Creatinine (0.8-1.3) mg/dL Glucose 467 H 445 H (75-100) mg/dL POC Glucose 454 H (70-105) mg/dL Hemoglobin A1c (4-6) % 05/20/20 05/20/20 05/20/20 Range/Units 15:10 16:50 17:14 Sodium 117 L* (137-145) mmol/L Potassium 6.1 H* (3.6-5.0) mmol/L Chloride 81.0 L (98-107) mmol/L Carbon Dioxide 7 L* (22-30) mmol/L BUN 34 H (9-20) mg/dL Creatinine (0.8-1.3) mg/dL Glucose 425 H (75-100) mg/dL POC Glucose 444 H 420 H (70-105) mg/dL Hemoglobin A1c (4-6) % 05/20/20 05/20/20 05/20/20 Range/Units 17:42 17:45 18:00 Sodium 119 L* (137-145) mmol/L Potassium 5.7 H (3.6-5.0) mmol/L Chloride 84.2 L (98-107) mmol/L Carbon Dioxide 5 L* (22-30) mmol/L BUN 35 H (9-20) mg/dL Creatinine (0.8-1.3) mg/dL Glucose 455 H (75-100) mg/dL POC Glucose 420 H (70-105) mg/dL Hemoglobin A1c 17.2 H (4-6) % 05/20/20 05/20/20 05/20/20 Range/Units 19:16 20:05 21:42 Sodium (137-145) mmol/L Potassium (3.6-5.0) mmol/L Chloride (98-107) mmol/L Carbon Dioxide (22-30) mmol/L BUN (9-20) mg/dL Creatinine (0.8-1.3) mg/dL Glucose (75-100) mg/dL POC Glucose 366 H 332 H 233 H (70-105) mg/dL Hemoglobin A1c (4-6) % 05/20/20 05/21/20 05/21/20 Range/Units 22:43 00:01 01:10 Sodium (137-145) mmol/L Potassium (3.6-5.0) mmol/L Chloride (98-107) mmol/L Carbon Dioxide (22-30) mmol/L BUN (9-20) mg/dL Creatinine (0.8-1.3) mg/dL Glucose (75-100) mg/dL POC Glucose 301 H 287 H 243 H (70-105) mg/dL Hemoglobin A1c (4-6) % 05/21/20 05/21/20 05/21/20 Range/Units 01:57 02:28 03:10 Sodium 125 L D (137-145) mmol/L Potassium 5.4 H (3.6-5.0) mmol/L Chloride 91.6 L (98-107) mmol/L Carbon Dioxide 12 L D (22-30) mmol/L BUN 46 H (9-20) mg/dL Creatinine 1.4 H (0.8-1.3) mg/dL Glucose 198 H (75-100) mg/dL POC Glucose 195 H 193 H (70-105) mg/dL Hemoglobin A1c (4-6) % 05/21/20 05/21/20 05/21/20 Range/Units 04:30 06:44 07:51 Sodium (137-145) mmol/L Potassium (3.6-5.0) mmol/L Chloride (98-107) mmol/L Carbon Dioxide (22-30) mmol/L BUN (9-20) mg/dL Creatinine (0.8-1.3) mg/dL Glucose (75-100) mg/dL POC Glucose 170 H 215 H 202 H (70-105) mg/dL Hemoglobin A1c (4-6) % 05/21/20 05/21/20 05/21/20 Range/Units 08:55 09:50 11:06 Sodium (137-145) mmol/L Potassium (3.6-5.0) mmol/L Chloride (98-107) mmol/L Carbon Dioxide (22-30) mmol/L BUN (9-20) mg/dL Creatinine (0.8-1.3) mg/dL Glucose (75-100) mg/dL POC Glucose 180 H 172 H 192 H (70-105) mg/dL Hemoglobin A1c (4-6) % - Imaging and Cardiology Chest x-ray: image reviewed (clear) Assessment and Plan 35 y/o male with new diagnosis diabetes, morbid obesity. 1. Continue insulin drip until gap closes 2. Suggest q6 hour BMP's 3. Ok for patient to have water 4. Severely dehydrated, needs volume replacement. 5. DIabetic education
[2020-05-21 15:20] LABS: BUN/Creatinine Ratio 38; Blood Urea Nitrogen 42 mg/dL (9-20); Calcium 8.9 mg/dL (8.4-10.2); Hemolysis Index 23
[2020-05-21 15:50] LABS: Hemoglobin 11.9 gm/dl (11.8-15.2)
[2020-05-21] MEDS ORDERED: DEXTROSE 50% IN WATER (25GM) 50 ML SYRINGE IV PRN (18:58)
[2020-05-21] MEDS ORDERED: INSULIN NPH/REGULAR 70/30 INJ SUB-Q ONE (19:30)
[2020-05-21] MEDS: INSULIN LISPRO 100 UNIT/ML SUB-Q SCH (21:43)
--- NOTE | 2020-05-21 22:17 | Consultation ---
REFERRING PHYSICIAN: Cathy Mohan MD. INDICATIONS: 1. Rectal bleeding. 2. GI bleed. HISTORY: The patient is a 35-year-old morbidly obese white male with history of hypertension, reflux and asthma as well as sleep apnea, was presented and admitted for high blood glucose level and found to be in DKA. The patient has had polydipsia and increased urinary flow and general weakness. The patient reports 1 day of dark, somewhat black stools. He reports this had actually occurred a couple times over the last couple of weeks. Denies Pepto-Bismol or iron use. The patient was admitted for DKA, noted to have a stable H and H, but GI is consulted to aid in management. The patient denies any history of GI bleeding. PAST MEDICAL HISTORY: 1. Hypertension. 2. Reflux. 3. Asthma. 4. Sleep apnea. 5. Anxiety. MEDICATIONS: Reviewed and updated in chart. SOCIAL HISTORY: Denies alcohol, tobacco or drug abuse. FAMILY HISTORY: Negative for colon cancer, IBD, or liver disease. REVIEW OF SYSTEMS: GENERAL: Reports some general weakness. HEENT: No visual complaints or tinnitus. PULMONARY: Denies shortness of breath. CARDIOVASCULAR: Chest pain. GASTROINTESTINAL: Reports dark stool. All points of 13-point review of systems otherwise negative. PHYSICAL EXAMINATION: VITAL SIGNS: Temperature of 98.1, pulse 100, respirations 18, blood pressure 130/70. GENERAL: Fairly nourished male in no acute distress. HEENT: Pupils equal, round, and reactive. PULMONARY: Clear to auscultation bilaterally. CARDIOVASCULAR: Regular rate and rhythm. Normal S1, S2. ABDOMEN: Palpable soft. SKIN: No obvious rashes. LABORATORY DATA: Labs pertinent for a white count of 10.9. Initial hemoglobin and hematocrit of 15.1 and 43.4 with a platelet count of 511, hemoglobin and hematocrit today of 11.9 and 34. Chem-7 pertinent for sodium of 127, potassium 4.3, chloride 99, CO2 of 13, BUN and creatinine of 42 and 1.1. ASSESSMENT AND PLAN: A 35-year-old white male with medical problems, admitted with DKA and being managed in our office now, reportedly had some recent dark stools, though none in the hospital. The patient did have a drop in his hemoglobin and hematocrit with hemoglobin from 13 to 11. This may be dilutional given the patient is getting so much fluid for his DKA. He has shown no further signs of bleeding since being admitted. Management is noted below. PLAN: 1. Follow hematocrit and transfuse as needed. 2. Okay to start p.o. when stable from DKA. 3. We will hold on any endoscopic evaluation, but we will consider based on progress. 4. We will follow. JOB# [id number] [facility]
[2020-05-22 00:17] LABS: BUN/Creatinine Ratio 37; Blood Urea Nitrogen 37 mg/dL (9-20); Calcium 8.5 mg/dL (8.4-10.2); Hemolysis Index 19
[2020-05-22 06:47] LABS: Hematocrit 29.4 % (35.5-45.6); Hemoglobin 10.1 gm/dl (11.8-15.2); Mean Corpuscular HGB Conc 34 % (32-34); Mean Corpuscular Volume 98 fl (84-94); Platelet Count 293 K/mm3 (140-440); Red Cell Distribution Width 14.5 % (13.2-15.2)
[2020-05-22 06:53] LABS: Alanine Aminotransferase 19 units/L (7-56); BUN/Creatinine Ratio 40; Blood Urea Nitrogen 40 mg/dL (9-20); Calcium 8.7 mg/dL (8.4-10.2); Hemolysis Index 18
[2020-05-22] MEDS ORDERED: SODIUM CHLORIDE 0.9% 1000 ML 1,000 ML IV ONE (08:00)
[2020-05-22] MEDS ORDERED: INSULIN NPH/REGULAR 70/30 INJ SUB-Q SCH ×4 (08:00→17:00)
[2020-05-22 08:07] LABS: Bilirubin,Direct 0.2 mg/dL (0-0.2)
[2020-05-22] MEDS: INSULIN LISPRO 100 UNIT/ML SUB-Q SCH ×5 (08:27→21:37)
--- NOTE | 2020-05-22 08:29 | Progress Note ---
Assessment and Plan Assessment and plan: --DKA (diabetic ketoacidoses) Current Visit: Yes Status: Acute Plan to address problem: s/p DKA pathway, Insulin drip per protocol Anion gap closed, however mild Adam elevated this morning Continue Accu-Chek sliding scale coverage ADA diet Long-acting insulin Novolin 70/30, dose increased to 20 units twice a day Closely monitor blood sugars adjust as needed Continue IV hydration, additional 1 L normal saline bolus now Hemoglobin A1c 17.2[05/20/20] Diabetic education, Diabetic diet education prior to discharge Possible home health nurse for disease monitoring at the time of discharge Distribution Designer following --Severe metabolic acidosis/hyponatremia Current Visit: Yes Status: Acute Plan to address problem: aggressive IV hydration and supportive care --h/o Adrenal hyperplasia, congenital Current Visit: Yes Status: Chronic Plan to address problem: Noncompliant patient , consider steroids Patient will follow with his filler wiper upon discharge, No endocrinology service available --Hypotension; Current Visit: Yes Status: Acute Plan to address problem: Due to congenital adrenal hyperplasia , IV fluids, consider steroids if needed --Severe metabolic acidosis; due to DKA Current Visit: Yes Status: Acute Plan to address problem: Vigorous IV hydration, Treat the underlying DKA Closely monitor --Hyponatremia/pseudohyponatremia Current Visit: Yes Status: Acute Plan to address problem: Due to hyperglycemia, as blood sugars improve, sodium levels improve. Treat the underlying DKA -- Hyperkalemia Current Visit: Yes Status: Acute Plan to address problem: Closely monitor electrolytes Treat the underlying DKA Kayexalate if needed --Melena/upper GI bleeding Current Visit: Yes Status: Acute Plan to address problem: patient is already n.p.o. status, ER consulted GI Closely monitor H&H, transfuse as needed Follow GI evaluation and recommendations Avoid aspirin and NSAID group of medications --TERRA (acute kidney injury) Current Visit: Yes Status: Acute Plan to address problem: Due to vasomotor nephropathy/dehydration. Reduce IV hydration, monitor renal function Avoid nephrotoxins, nephrology consult if no improvement, IV Protonix, --Hepatomegaly on CT abdomen Current Visit: Yes Status: Chronic Plan to address problem: Fatty infiltration, GI consulted, check ultrasound of the abdomen Low transaminases -- HTN (hypertension) Current Visit: Yes Status: Chronic Plan to address problem: Well-controlled, closely monitor. Possible obstructive sleep apnea As needed hydralazine --Morbid obesity; BMI 65.2; Current Visit: Yes Status: Chronic Plan to address problem: --possible obstructive sleep apnea: Current Visit: Yes Status: Chronic Plan to address problem: CPAP/BiPAP at night and as needed during daytime Patient needs outpatient sleep study if it is not already done --DVT prophylaxis Current Visit: Yes Status: Acute . Plan to address problem: Patient is allergic to Enoxaparin SCDs We will closely monitor the patient and adjust the management as needed Plan of care reviewed with the patient and his nurse Critical care time 35 minutes The high probability of a clinically significant, sudden or life threatening deterioration of the [metabolic, endocrine, GI and renal] system(s) required my full and direct attention, intervention and personal management. The aggregate critical care time was [35] minutes. This time is in addition to time spent performing reported procedures but includes the following: [x] Data Review and interpretation [x] Patient assessment and monitoring of vital signs [x] Documentation [x] Medication orders and management History Interval history: I seen and examined the patient at the bedside in ICU this morning Patient's chart and medications reviewed Admitted with DKA, on DKA pathway, blood sugars reasonable control Initially anion gap closed and now slightly elevated Continues to be acidotic, hypotensive, hyponatremia Patient feels better no new complaints Vital signs reviewed Hospitalist Physical - Constitutional Vitals: Temp Pulse Resp BP Pulse Ox 97.4 F L 111 H 18 96/61 97 05/22/20 04:00 05/22/20 06:00 05/22/20 06:00 05/22/20 06:00 05/22/20 06:00 General appearance: Present: mild distress, well-nourished, obese (Morbidly obese) - EENT Eyes: Present: PERRL, EOM intact - Neck Neck: Present: supple, normal ROM - Respiratory Respiratory effort: normal Respiratory: bilateral: diminished, negative: rales, rhonchi, wheezing - Cardiovascular Rhythm: regular Heart Sounds: Present: S1 & S2 - Extremities Extremities: no ischemia, No edema - Abdominal General gastrointestinal: soft, non-tender, non-distended, normal bowel sounds - Integumentary Integumentary: Present: clear, warm - Psychiatric Psychiatric: appropriate mood/affect, cooperative - Neurologic Neurologic: CNII-XII intact, moves all extremities HEART Score - HEART Score Troponin: Troponin T < 0.010 ng/mL (0.00-0.029) 05/20/20 08:38 Results - Labs CBC & Chem 7: 05/22/20 05:05 05/22/20 05:05 Labs: Laboratory Last Values WBC 6.7 K/mm3 (4.5-11.0) 05/22/20 05:05 RBC 3.00 M/mm3 (3.65-5.03) L 05/22/20 05:05 Hgb 10.1 gm/dl (11.8-15.2) L 05/22/20 05:05 Hct 29.4 % (35.5-45.6) L 05/22/20 05:05 MCV 98 fl (84-94) H 05/22/20 05:05 MCH 34 pg (28-32) H 05/22/20 05:05 MCHC 34 % (32-34) 05/22/20 05:05 RDW 14.5 % (13.2-15.2) 05/22/20 05:05 Plt Count 293 K/mm3 (140-440) 05/22/20 05:05 Lymph % (Auto) 17.2 % (13.4-35.0) 05/20/20 08:38 Sandoval % (Auto) 7.0 % (0.0-7.3) 05/20/20 08:38 Eos % (Auto) 0.7 % (0.0-4.3) 05/20/20 08:38 Baso % (Auto) 2.2 % (0.0-1.8) H 05/20/20 08:38 Lymph # (Auto) 1.9 K/mm3 (1.2-5.4) 05/20/20 08:38 Sandoval # (Auto) 0.8 K/mm3 (0.0-0.8) 05/20/20 08:38 Eos # (Auto) 0.1 K/mm3 (0.0-0.4) 05/20/20 08:38 Baso # (Auto) 0.2 K/mm3 (0.0-0.1) H 05/20/20 08:38 Seg Neutrophils % 72.9 % (40.0-70.0) H 05/20/20 08:38 Seg Neutrophils # 7.9 K/mm3 (1.8-7.7) H 05/20/20 08:38 PT 12.7 Sec. (12.2-14.9) 05/20/20 08:38 INR 0.96 (0.87-1.13) 05/20/20 08:38 APTT 28.6 Sec. (24.2-36.6) 05/20/20 08:38 VBG pH 7.240 (7.320-7.420) L 05/20/20 09:00 Sodium 126 mmol/L (137-145) L 05/22/20 05:05 Potassium 5.1 mmol/L (3.6-5.0) H D 05/22/20 05:05 Chloride 95.7 mmol/L (98-107) L 05/22/20 05:05 Carbon Dioxide 13 mmol/L (22-30) L 05/22/20 05:05 Anion Gap 22 mmol/L 05/22/20 05:05 BUN 40 mg/dL (9-20) H 05/22/20 05:05 Creatinine 1.0 mg/dL (0.8-1.3) 05/22/20 05:05 Estimated GFR > 60 ml/min 05/22/20 05:05 BUN/Creatinine Ratio 40 % 05/22/20 05:05 Glucose 251 mg/dL (75-100) H 05/22/20 05:05 POC Glucose 157 mg/dL (70-105) H 05/22/20 01:37 Hemoglobin A1c 17.2 % (4-6) H 05/20/20 18:00 Ketones Quantitative Moderate (Negative) 05/20/20 09:00 Calcium 8.7 mg/dL (8.4-10.2) 05/22/20 05:05 Phosphorus 3.50 mg/dL (2.5-4.5) 05/22/20 05:05 Magnesium 1.50 mg/dL (1.7-2.3) L 05/22/20 05:05 Total Bilirubin 0.30 mg/dL (0.1-1.2) 05/22/20 05:05 Direct Bilirubin 0.2 mg/dL (0-0.2) 05/22/20 05:05 Indirect Bilirubin 0.1 mg/dL 05/22/20 05:05 AST 18 units/L (5-40) 05/22/20 05:05 ALT 19 units/L (7-56) 05/22/20 05:05 Alkaline Phosphatase 112 units/L (35-129) 05/22/20 05:05 Total Creatine Kinase < 7 units/L (55-170) L 05/20/20 09:00 CK-MB (CK-2) < 1.0 ng/mL (0.0-4.0) 05/20/20 09:00 CK-MB (CK-2) Rel Index 0.0 (0-4) 05/20/20 09:00 Troponin T < 0.010 ng/mL (0.00-0.029) 05/20/20 08:38 NT-Pro-B Natriuret Pep 53.42 pg/mL (0-450) 05/20/20 09:00 Total Protein 6.0 g/dL (6.3-8.2) L D 05/22/20 05:05 Albumin 3.0 g/dL (3.9-5) L 05/22/20 05:05 Albumin/Globulin Ratio 1.0 % 05/22/20 05:05 Lipase 16 units/L (13-60) 05/20/20 08:38 Urine Color Yellow (Yellow) 05/20/20 18:28 Urine Turbidity Slightly-cloudy (Clear) 05/20/20 18:28 Urine pH 5.0 (5.0-7.0) 05/20/20 18:28 Ur Specific [place] 1.029 (1.003-1.030) 05/20/20 18:28 Urine Protein 30 mg/dl mg/dL (Negative) 05/20/20 18:28 Urine Glucose (UA) >=500 mg/dL (Negative) 05/20/20 18:28 Urine Ketones 20 mg/dL (Negative) 05/20/20 18:28 Urine Blood Neg (Negative) 05/20/20 18: Urine Nitrite Neg (Negative) 05/20/20 18:28 Urine Bilirubin Neg (Negative) 05/20/20 18:28 Urine Urobilinogen < 2.0 mg/dL (<2.0) 05/20/20 18:28 Ur Leukocyte Esterase Neg (Negative) 05/20/20 18:28 Urine WBC (Auto) 1.0 /HPF (0.0-6.0) 05/20/20 18:28 Urine RBC (Auto) 2.0 /HPF (0.0-6.0) 05/20/20 18:28 U Epithel Cells (Auto) 1.0 /HPF (0-13.0) 05/20/20 18:28 Coronavirus (PCR) Negative (Negative) 05/21/20 Unknown Blood Type O NEGATIVE 05/20/20 08:38 Antibody Screen Negative 05/20/20 08:38 Microbiology: Microbiology 05/20/20 18:28 Urine,Clean Catch Urine Culture - Final Beta Hemolytic Strep Group B 05/20/20 10:12 Peripheral/Venous Blood Culture - Preliminary NO GROWTH AFTER 24 HOURS 05/20/20 10:12 Peripheral/Venous Blood Culture - Preliminary NO GROWTH AFTER 24 HOURS Voss/IV: Voiding Method Urinal Active Medications - Current Medications Current Medications: Generic Name Dose Route Start Last Admin Trade Name Freq PRN Reason Stop Dose Admin Dextrose 50 ml 05/21/20 18:58 Dextrose 50% In Water (25gm) 50 Ml Syringe IV Q30MIN PRN Hypoglycemia Protocol Hydrocortisone Sodium Succinate 100 mg 05/22/20 14:00 Hydrocortisone Sod Succ 100 Mg/2 Ml Vial IV Q8HR EMANUEL Sodium Chloride 1,000 mls @ 150 mls/hr 05/20/20 18:15 05/21/20 15:11 Nacl 0.9% 1000 Ml IV 125 mls/hr DIRECT EMANUEL Administration Dextrose/Sodium Chloride 1,000 mls @ 125 mls/hr 05/21/20 10:00 05/21/20 17:52 D5/0.45ns IV 125 mls/hr DIRECT EMANUEL Administration Sodium Chloride 1,000 mls @ 999 mls/hr 05/22/20 08:00 Nacl 0.9% 1000 Ml IV 05/22/20 09:00 BOLUS ONE Insulin Human Isoph/Insulin Regular 8 unit 05/22/20 08:00 Insulin Nph/Regular 70/30 Inj SUB-Q BIDDIAB EMANUEL Insulin Human Lispro 0 unit 05/21/20 22:00 05/21/20 21:43 Insulin Lispro 100 Unit/Ml SUB-Q 3 unit ACHS EMANUEL Administration Protocol Lorazepam 1 mg 05/20/20 23:15 05/21/20 20:11 Lorazepam 2 Mg/Ml Vial IV 1 mg Q4H PRN Administration Agitation Sodium Chloride 10 ml 05/20/20 18:00 05/20/20 21:18 Sodium Chloride 0.9% 10 Ml Flush Syringe IV 10 ml PRN PRN Administration LINE FLUSH Nutrition/Malnutrition Assess - Dietary Evaluation Nutrition/Malnutrition Findings: Nutrition Notes Start: 05/21/20 10:21 Freq: Status: Active Protocol: Document 05/21/20 10:21 KIRILL (Rec: 05/21/20 10:29 [facility] [id number]) Nutrition Notes Need for Assessment generated from: MD Order,Education Initial or Follow up Brief Note Current Diagnosis Acute Kidney Injury,Diabetes, Hypertension Other Pertinent Diagnosis DKA, new onset DM, GIB, asthma , sleep apnea, congenital adrenal hyperplasia Current Diet NPO Labs/Tests A1C 17.2 K 5.4 BUN 46 Cr 1.4 Pertinent Medications D5 1/2NS at 125ml/hr, Insulin gtt, NS at 125ml/hr Height 5 ft 4 in Weight 172.365 kg [place] Body Weight (kg) 59.09 BMI 65.2 Weight Status Morbidly Obese Subjective/Other Information RD consulted for diet education; pt also screened for new onset of DM. Pt admitted with S/S of hyperglycemia. Burn Absent Trauma Absent Minimum of two criteria No Is patient on ventilator? No Is Patient Ambulatory and/or Out of Bed No REE-([facility]-confined to bed) 3090.780 Kcal/Kg value to use for calculation 11 Approximate Energy Requirements Using 1896 kcal/Kg Calculation Used for Recommendations Kcal/kg Additional Notes Pro needs up to 2.5g/kg IBW: up to 148g/day Fluid needs 1ml/kcal Nutrition Intervention Follow-Up By: 05/23/20 Additional Comments F/U: DM diet education (new onset), diet advancement
--- NOTE | 2020-05-22 08:45 | Progress Note ---
Assessment and Plan 35 y/o male with new diagnosis diabetes, morbid obesity. 05/22/20: Will research CAH as i do not treat this commonly. ALL MAPs have been acceptable since admission. Current MAP is 77. Not on pressors. Would suggest maybe oral steroid replacement for now as the stress doses may cause his blood sugar to become elevated again. Needs an A1c level checked. Suggest starting patient on long acting insulin therapy with sliding scale and feed the patient. Some of his electrolyte imbalance maybe from CAH as oppose to volume depletion. Hopeful to transition out of the unit today. 1. Continue insulin drip until gap closes 2. Suggest q6 hour BMP's 3. Ok for patient to have water 4. Severely dehydrated, needs volume replacement. 5. DIabetic education Subjective Date of service: 05/22/20 Interval history: Awake and alert. States he feels better. Labs are all over the place. Mag is 1.5 this am. Gap is still elevated but has elevated BUN and elevated chloride. Objective - Constitutional Vitals: Vital Signs - 12hr 05/21/20 05/21/20 05/21/20 21:15 21:20 21:30 Temperature Pulse Rate 114 H 114 H 115 H Pulse Rate [ From Monitor] Respiratory 18 18 15 Rate Blood Pressure 136/86 125/65 125/65 O2 Sat by Pulse 98 99 Oximetry 05/21/20 05/21/20 05/21/20 21:40 21:50 22:00 Temperature Pulse Rate 114 H 114 H 112 H Pulse Rate [ From Monitor] Respiratory 20 21 25 H Rate Blood Pressure 125/65 136/86 136/86 O2 Sat by Pulse 99 98 99 Oximetry 05/21/20 05/21/20 05/21/20 22:39 22:40 22:50 Temperature Pulse Rate 114 H 111 H Pulse Rate [ From Monitor] Respiratory 23 21 Rate Blood Pressure 144/88 144/88 144/88 O2 Sat by Pulse 98 98 96 Oximetry 05/21/20 05/21/20 05/21/20 23:00 23:10 23:20 Temperature Pulse Rate 112 H 112 H 114 H Pulse Rate [ From Monitor] Respiratory 19 19 20 Rate Blood Pressure 98/47 98/47 98/47 O2 Sat by Pulse 95 94 95 Oximetry 05/21/20 05/21/20 05/21/20 23:30 23:40 23:48 Temperature Pulse Rate 111 H 109 H 113 H Pulse Rate [ From Monitor] Respiratory 19 17 22 Rate Blood Pressure 98/47 98/47 98/47 O2 Sat by Pulse 94 94 93 Oximetry 05/21/20 05/22/20 05/22/20 23:50 00:00 00:10 Temperature 98.0 F Pulse Rate 116 H 108 H 109 H Pulse Rate [ 111 H From Monitor] Respiratory 20 18 16 Rate Blood Pressure 98/47 106/62 106/62 O2 Sat by Pulse 95 94 94 Oximetry 05/22/20 05/22/20 05/22/20 00:20 00:30 00:40 Temperature Pulse Rate 95 H 113 H 111 H Pulse Rate [ From Monitor] Respiratory 15 17 17 Rate Blood Pressure 106/62 106/62 106/62 O2 Sat by Pulse 96 95 93 Oximetry 05/22/20 05/22/20 05/22/20 00:51 01:01 01:10 Temperature Pulse Rate 108 H 113 H 117 H Pulse Rate [ From Monitor] Respiratory 17 17 14 Rate Blood Pressure 106/62 106/62 106/66 O2 Sat by Pulse 95 96 97 Oximetry 05/22/20 05/22/20 05/22/20 01:20 01:30 01:40 Temperature Pulse Rate 111 H 111 H 112 H Pulse Rate [ From Monitor] Respiratory 16 22 15 Rate Blood Pressure 106/66 106/66 O2 Sat by Pulse 97 97 97 Oximetry 05/22/20 05/22/20 05/22/20 01:50 02:00 02:10 Temperature Pulse Rate 115 H 112 H 110 H Pulse Rate [ From Monitor] Respiratory 24 19 23 Rate Blood Pressure 106/66 108/60 108/60 O2 Sat by Pulse 95 96 95 Oximetry 05/22/20 05/22/20 05/22/20 02:20 02:30 02:40 Temperature Pulse Rate 112 H 114 H 110 H Pulse Rate [ From Monitor] Respiratory 20 29 H Rate Blood Pressure 108/60 108/60 108/60 O2 Sat by Pulse 98 97 96 Oximetry 05/22/20 05/22/20 05/22/20 02:50 03:00 03:10 Temperature Pulse Rate 115 H 112 H Pulse Rate [ From Monitor] Respiratory 13 22 Rate Blood Pressure 108/60 108/60 119/84 O2 Sat by Pulse 95 99 94 Oximetry 05/22/20 05/22/20 05/22/20 03:20 03:30 03:40 Temperature Pulse Rate 112 H 112 H 107 H Pulse Rate [ From Monitor] Respiratory 22 22 13 Rate Blood Pressure 119/84 119/84 119/84 O2 Sat by Pulse 95 95 95 Oximetry 05/22/20 05/22/20 05/22/20 03:50 04:00 04:10 Temperature 97.4 F L Pulse Rate 108 H 107 H 107 H Pulse Rate [ 111 H From Monitor] Respiratory 22 20 18 Rate Blood Pressure 119/84 106/57 106/57 O2 Sat by Pulse 97 95 96 Oximetry 05/22/20 05/22/20 05/22/20 04:20 04:30 04:40 Temperature Pulse Rate 109 H 109 H 109 H Pulse Rate [ From Monitor] Respiratory 18 16 17 Rate Blood Pressure 106/57 106/57 106/57 O2 Sat by Pulse 94 95 95 Oximetry 05/22/20 05/22/20 05/22/20 04:50 05:00 05:10 Temperature Pulse Rate 104 H 108 H 111 H Pulse Rate [ From Monitor] Respiratory 16 17 18 Rate Blood Pressure 106/57 96/61 96/61 O2 Sat by Pulse 95 96 96 Oximetry 05/22/20 05/22/20 05/22/20 05:20 05:30 05:40 Temperature Pulse Rate 114 H 108 H 103 H Pulse Rate [ From Monitor] Respiratory 13 18 17 Rate Blood Pressure 96/61 96/61 96/61 O2 Sat by Pulse 97 95 94 Oximetry 05/22/20 05/22/20 05/22/20 05:50 06:00 07:46 Temperature Pulse Rate 112 H 111 H 106 H Pulse Rate [ From Monitor] Respiratory 21 18 14 Rate Blood Pressure 96/61 96/61 118/64 O2 Sat by Pulse 97 97 99 Oximetry 05/22/20 05/22/20 05/22/20 07:50 08:00 08:10 Temperature Pulse Rate 107 H 105 H 112 H Pulse Rate [ From Monitor] Respiratory 16 19 15 Rate Blood Pressure 125/71 119/77 119/77 O2 Sat by Pulse 99 100 99 Oximetry 05/22/20 05/22/20 08:20 08:30 Temperature Pulse Rate 104 H 106 H Pulse Rate [ From Monitor] Respiratory 21 21 Rate Blood Pressure 119/77 119/77 O2 Sat by Pulse 99 99 Oximetry - Labs CBC & Chem 7: 05/22/20 05:05 05/22/20 05:05 Labs: Abnormal lab results 05/21/20 05/21/20 05/21/20 Range/Units 04:30 06:44 07:51 RBC (3.65-5.03) M/mm3 Hgb (11.8-15.2) gm/dl Hct (35.5-45.6) % MCV (84-94) fl MCH (28-32) pg Sodium (137-145) mmol/L Potassium (3.6-5.0) mmol/L Chloride (98-107) mmol/L Carbon Dioxide (22-30) mmol/L BUN (9-20) mg/dL Glucose (75-100) mg/dL POC Glucose 170 H 215 H 202 H (70-105) mg/dL Magnesium (1.7-2.3) mg/dL Total Protein (6.3-8.2) g/dL Albumin (3.9-5) g/dL 05/21/20 05/21/20 05/21/20 Range/Units 08:55 09:50 11:06 RBC (3.65-5.03) M/mm3 Hgb (11.8-15.2) gm/dl Hct (35.5-45.6) % MCV (84-94) fl MCH (28-32) pg Sodium (137-145) mmol/L Potassium (3.6-5.0) mmol/L Chloride (98-107) mmol/L Carbon Dioxide (22-30) mmol/L BUN (9-20) mg/dL Glucose (75-100) mg/dL POC Glucose 180 H 172 H 192 H (70-105) mg/dL Magnesium (1.7-2.3) mg/dL Total Protein (6.3-8.2) g/dL Albumin (3.9-5) g/dL 05/21/20 05/21/20 05/21/20 Range/Units 11:40 13:07 14:10 RBC (3.65-5.03) M/mm3 Hgb (11.8-15.2) gm/dl Hct (35.5-45.6) % MCV (84-94) fl MCH (28-32) pg Sodium (137-145) mmol/L Potassium (3.6-5.0) mmol/L Chloride (98-107) mmol/L Carbon Dioxide (22-30) mmol/L BUN (9-20) mg/dL Glucose (75-100) mg/dL POC Glucose 216 H 216 H 214 H (70-105) mg/dL Magnesium (1.7-2.3) mg/dL Total Protein (6.3-8.2) g/dL Albumin (3.9-5) g/dL 05/21/20 05/21/20 05/21/20 Range/Units 14:32 14:32 15:04 RBC (3.65-5.03) M/mm3 Hgb (11.8-15.2) gm/dl Hct 34.0 L D (35.5-45.6) % MCV (84-94) fl MCH (28-32) pg Sodium 127 L (137-145) mmol/L Potassium (3.6-5.0) mmol/L Chloride (98-107) mmol/L Carbon Dioxide 13 L (22-30) mmol/L BUN 42 H (9-20) mg/dL Glucose 191 H (75-100) mg/dL POC Glucose 192 H (70-105) mg/dL Magnesium (1.7-2.3) mg/dL Total Protein (6.3-8.2) g/dL Albumin (3.9-5) g/dL 05/21/20 05/21/20 05/21/20 Range/Units 17:49 19:41 20:51 RBC (3.65-5.03) M/mm3 Hgb (11.8-15.2) gm/dl Hct (35.5-45.6) % MCV (84-94) fl MCH (28-32) pg Sodium (137-145) mmol/L Potassium (3.6-5.0) mmol/L Chloride (98-107) mmol/L Carbon Dioxide (22-30) mmol/L BUN (9-20) mg/dL Glucose (75-100) mg/dL POC Glucose 135 H 171 H 203 H (70-105) mg/dL Magnesium (1.7-2.3) mg/dL Total Protein (6.3-8.2) g/dL Albumin (3.9-5) g/dL 05/21/20 05/21/20 05/21/20 Range/Units 21:52 23:19 23:47 RBC (3.65-5.03) M/mm3 Hgb (11.8-15.2) gm/dl Hct (35.5-45.6) % MCV (84-94) fl MCH (28-32) pg Sodium 126 L (137-145) mmol/L Potassium (3.6-5.0) mmol/L Chloride 97.0 L (98-107) mmol/L Carbon Dioxide 17 L (22-30) mmol/L BUN 37 H (9-20) mg/dL Glucose 205 H (75-100) mg/dL POC Glucose 253 H 211 H (70-105) mg/dL Magnesium (1.7-2.3) mg/dL Total Protein (6.3-8.2) g/dL Albumin (3.9-5) g/dL 05/22/20 05/22/20 05/22/20 Range/Units 00:35 01:37 05:05 RBC 3.00 L (3.65-5.03) M/mm3 Hgb 10.1 L (11.8-15.2) gm/dl Hct 29.4 L (35.5-45.6) % MCV 98 H (84-94) fl MCH 34 H (28-32) pg Sodium (137-145) mmol/L Potassium (3.6-5.0) mmol/L Chloride (98-107) mmol/L Carbon Dioxide (22-30) mmol/L BUN (9-20) mg/dL Glucose (75-100) mg/dL POC Glucose 141 H 157 H (70-105) mg/dL Magnesium (1.7-2.3) mg/dL Total Protein (6.3-8.2) g/dL Albumin (3.9-5) g/dL 05/22/20 Range/Units 05:05 RBC (3.65-5.03) M/mm3 Hgb (11.8-15.2) gm/dl Hct (35.5-45.6) % MCV (84-94) fl MCH (28-32) pg Sodium 126 L (137-145) mmol/L Potassium 5.1 H D (3.6-5.0) mmol/L Chloride 95.7 L (98-107) mmol/L Carbon Dioxide 13 L (22-30) mmol/L BUN 40 H (9-20) mg/dL Glucose 251 H (75-100) mg/dL POC Glucose (70-105) mg/dL Magnesium 1.50 L (1.7-2.3) mg/dL Total Protein 6.0 L D (6.3-8.2) g/dL Albumin 3.0 L (3.9-5) g/dL Medications & Allergies - Medications Allergies/Adverse Reactions: Allergies Cephalosporins Allergy (Intermediate, Verified 05/21/20 00:23) Hives enoxaparin [From Lovenox] Allergy (Verified 05/20/20 08:36) Rash Home Medications: Home Medications Medication Instructions Recorded Confirmed Last Taken Type No Known Home Medications [No 05/20/20 05/20/20 Unknown History Reported Home Medications] Active Medications: Generic Name Dose Route Start Last Admin Trade Name Freq PRN Reason Stop Dose Admin Dextrose 50 ml 05/21/20 18:58 Dextrose 50% In Water (25gm) 50 Ml Syringe IV Q30MIN PRN Hypoglycemia Protocol Sodium Chloride 1,000 mls @ 150 mls/hr 05/20/20 18:15 05/21/20 15:11 Nacl 0.9% 1000 Ml IV 125 mls/hr DIRECT EMANUEL Administration Dextrose/Sodium Chloride 1,000 mls @ 125 mls/hr 05/21/20 10:00 05/21/20 17:52 D5/0.45ns IV 125 mls/hr DIRECT EMANUEL Administration Sodium Chloride 1,000 mls @ 999 mls/hr 05/22/20 08:00 Nacl 0.9% 1000 Ml IV 05/22/20 09:00 BOLUS ONE Magnesium Sulfate 4 gm in 100 mls @ 25 mls/hr 05/22/20 08:31 Magnesium Sulfate 4gm/100ml IV 05/22/20 12:30 ONCE ONE Insulin Human Isoph/Insulin Regular 8 unit 05/22/20 08:00 05/22/20 08:28 Insulin Nph/Regular 70/30 Inj SUB-Q 8 unit BIDDIAB EMANUEL Administration Insulin Human Lispro 0 unit 05/21/20 22:00 05/22/20 08:27 Insulin Lispro 100 Unit/Ml SUB-Q 2 unit ACHS EMANUEL Administration Protocol Lorazepam 1 mg 05/20/20 23:15 05/21/20 20:11 Lorazepam 2 Mg/Ml Vial IV 1 mg Q4H PRN Administration Agitation Sodium Chloride 10 ml 05/20/20 18:00 05/20/20 21:18 Sodium Chloride 0.9% 10 Ml Flush Syringe IV 10 ml PRN PRN Administration LINE FLUSH HEART Score - HEART Score Troponin: Troponin T < 0.010 ng/mL (0.00-0.029) 05/20/20 08:38
[2020-05-22 09:03] LABS: Total Cells Counted 100
[2020-05-22 09:04] LABS: Anisocytosis 1+; Platelet Estimate Consistent w Auto
[2020-05-22] MEDS ORDERED: FLUDROCORTISONE 0.1 MG TAB PO SCH (10:00)
[2020-05-22] MEDS ORDERED: MAGNESIUM SULFATE 4 GM/100 ML BAG IV ONE (10:00)
[2020-05-22] MEDS: FLUDROCORTISONE 0.1 MG TAB PO SCH (10:52)
[2020-05-22] MEDS ORDERED: INSULIN NPH/REGULAR 70/30 INJ SUB-Q ONE (11:00)
[2020-05-22] MEDS ORDERED: HYDROCORTISONE SOD SUCC 100 MG/2 ML VIAL IV SCH (14:00)
--- NOTE | 2020-05-22 14:15 | Gastroenterology Progress Note ---
Assessment and Plan 1. GI: pt w/ DKA being managed now with black stools and noted decrease h/h - concern for UGI bleed - PPI iv bid - follow h/h, transfuse as needed - DKA management per primary team - probable EGD in am Subjective Date of service: 05/22/20 Interval history: - reports still w/ black stools. Denies other specific GI complaints Objective - Constitutional Vitals: Temp Pulse Resp BP Pulse Ox 97.4 F L 102 H 22 106/53 99 05/22/20 04:00 05/22/20 10:00 05/22/20 09:20 05/22/20 10:00 05/22/20 10:00 General appearance: no acute distress - EENT Eyes: PERRL - Respiratory Respiratory: bilateral: CTA - Cardiovascular Rhythm: regular Heart Sounds: Present: S1 & S2 - Gastrointestinal General gastrointestinal: Present: soft, non-tender, non-distended - Labs CBC & Chem 7: 05/22/20 05:05 05/22/20 05:05 Labs: Laboratory Results - last 24 hr 05/21/20 05/21/20 05/21/20 14:10 14:32 14:32 WBC RBC Hgb 11.9 D Hct 34.0 L D MCV MCH MCHC RDW Plt Count Add Manual Diff Total Counted Seg Neuts % (Manual) Lymphocytes % (Manual) Monocytes % (Manual) Eosinophils % (Manual) Metamyelocytes % Nucleated RBC % Seg Neutrophils # Man Band Neutrophils # Lymphocytes # (Manual) Abs React Lymphs (Man) Monocytes # (Manual) Eosinophils # (Manual) Basophils # (Manual) Metamyelocytes # Myelocytes # Promyelocytes # Blast Cells # WBC Morphology Hypersegmented Neuts Hyposegmented Neuts Hypogranular Neuts Smudge Cells Toxic Granulation Toxic Vacuolation Dohle Bodies Pelger-Huet Anomaly Alexa Rods Platelet Estimate Clumped Platelets Plt Clumps, EDTA Large Platelets Giant Platelets Platelet Satelliting Plt Morphology Comment RBC Morphology Dimorphic RBCs Polychromasia Hypochromasia Poikilocytosis Anisocytosis Microcytosis Macrocytosis Spherocytes Pappenheimer Bodies Sickle Cells Target Cells Tear Drop Cells Ovalocytes Helmet Cells Smith-Lester Bodies Duncan Rings [place] Cells Bite Cells Crenated Cell Elliptocytes Acanthocytes (Spur) Rouleaux Hemoglobin C Crystals Schistocytes Malaria parasites Zaheer Bodies Hem Pathologist Commnt Sodium 127 L Potassium 4.3 D Chloride 99.0 Carbon Dioxide 13 L Anion Gap 19 BUN 42 H Creatinine 1.1 Estimated GFR > 60 BUN/Creatinine Ratio 38 Glucose 191 H POC Glucose 214 H Calcium 8.9 Phosphorus Magnesium Total Bilirubin Direct Bilirubin Indirect Bilirubin AST ALT Alkaline Phosphatase Total Protein Albumin Albumin/Globulin Ratio Coronavirus (PCR) 05/21/20 05/21/20 05/21/20 15:04 17:49 19:41 WBC RBC Hgb Hct MCV MCH MCHC RDW Plt Count Add Manual Diff Total Counted Seg Neuts % (Manual) Lymphocytes % (Manual) Monocytes % (Manual) Eosinophils % (Manual) Metamyelocytes % Nucleated RBC % Seg Neutrophils # Man Band Neutrophils # Lymphocytes # (Manual) Abs React Lymphs (Man) Monocytes # (Manual) Eosinophils # (Manual) Basophils # (Manual) Metamyelocytes # Myelocytes # Promyelocytes # Blast Cells # WBC Morphology Hypersegmented Neuts Hyposegmented Neuts Hypogranular Neuts Smudge Cells Toxic Granulation Toxic Vacuolation Dohle Bodies Pelger-Huet Anomaly Alexa Rods Platelet Estimate Clumped Platelets Plt Clumps, EDTA Large Platelets Giant Platelets Platelet Satelliting Plt Morphology Comment RBC Morphology Dimorphic RBCs Polychromasia Hypochromasia Poikilocytosis Anisocytosis Microcytosis Macrocytosis Spherocytes Pappenheimer Bodies Sickle Cells Target Cells Tear Drop Cells Ovalocytes Helmet Cells Smith-Lester Bodies Duncan Rings [place] Cells Bite Cells Crenated Cell Elliptocytes Acanthocytes (Spur) Rouleaux Hemoglobin C Crystals Schistocytes Malaria parasites Zaheer Bodies Hem Pathologist Commnt Sodium Potassium Chloride Carbon Dioxide Anion Gap BUN Creatinine Estimated GFR BUN/Creatinine Ratio Glucose POC Glucose 192 H 135 H 171 H Calcium Phosphorus Magnesium Total Bilirubin Direct Bilirubin Indirect Bilirubin AST ALT Alkaline Phosphatase Total Protein Albumin Albumin/Globulin Ratio Coronavirus (PCR) 05/21/20 05/21/20 05/21/20 20:51 21:52 23:19 WBC RBC Hgb Hct MCV MCH MCHC RDW Plt Count Add Manual Diff Total Counted Seg Neuts % (Manual) Lymphocytes % (Manual) Monocytes % (Manual) Eosinophils % (Manual) Metamyelocytes % Nucleated RBC % Seg Neutrophils # Man Band Neutrophils # Lymphocytes # (Manual) Abs React Lymphs (Man) Monocytes # (Manual) Eosinophils # (Manual) Basophils # (Manual) Metamyelocytes # Myelocytes # Promyelocytes # Blast Cells # WBC Morphology Hypersegmented Neuts Hyposegmented Neuts Hypogranular Neuts Smudge Cells Toxic Granulation Toxic Vacuolation Dohle Bodies Pelger-Huet Anomaly Alexa Rods Platelet Estimate Clumped Platelets Plt Clumps, EDTA Large Platelets Giant Platelets Platelet Satelliting Plt Morphology Comment RBC Morphology Dimorphic RBCs Polychromasia Hypochromasia Poikilocytosis Anisocytosis Microcytosis Macrocytosis Spherocytes Pappenheimer Bodies Sickle Cells Target Cells Tear Drop Cells Ovalocytes Helmet Cells Smith-Lester Bodies Duncan Rings [place] Cells Bite Cells Crenated Cell Elliptocytes Acanthocytes (Spur) Rouleaux Hemoglobin C Crystals Schistocytes Malaria parasites Zaheer Bodies Hem Pathologist Commnt Sodium Potassium Chloride Carbon Dioxide Anion Gap BUN Creatinine Estimated GFR BUN/Creatinine Ratio Glucose POC Glucose 203 H 253 H 211 H Calcium Phosphorus Magnesium Total Bilirubin Direct Bilirubin Indirect Bilirubin AST ALT Alkaline Phosphatase Total Protein Albumin Albumin/Globulin Ratio Coronavirus (PCR) 05/21/20 05/21/20 05/22/20 23:47 Unknown 00:35 WBC RBC Hgb Hct MCV MCH MCHC RDW Plt Count Add Manual Diff Total Counted Seg Neuts % (Manual) Lymphocytes % (Manual) Monocytes % (Manual) Eosinophils % (Manual) Metamyelocytes % Nucleated RBC % Seg Neutrophils # Man Band Neutrophils # Lymphocytes # (Manual) Abs React Lymphs (Man) Monocytes # (Manual) Eosinophils # (Manual) Basophils # (Manual) Metamyelocytes # Myelocytes # Promyelocytes # Blast Cells # WBC Morphology Hypersegmented Neuts Hyposegmented Neuts Hypogranular Neuts Smudge Cells Toxic Granulation Toxic Vacuolation Dohle Bodies Pelger-Huet Anomaly Alexa Rods Platelet Estimate Clumped Platelets Plt Clumps, EDTA Large Platelets Giant Platelets Platelet Satelliting Plt Morphology Comment RBC Morphology Dimorphic RBCs Polychromasia Hypochromasia Poikilocytosis Anisocytosis Microcytosis Macrocytosis Spherocytes Pappenheimer Bodies Sickle Cells Target Cells Tear Drop Cells Ovalocytes Helmet Cells Smith-Lester Bodies Duncan Rings [place] Cells Bite Cells Crenated Cell Elliptocytes Acanthocytes (Spur) Rouleaux Hemoglobin C Crystals Schistocytes Malaria parasites Zaheer Bodies Hem Pathologist Commnt Sodium 126 L Potassium 4.1 Chloride 97.0 L Carbon Dioxide 17 L Anion Gap 16 BUN 37 H Creatinine 1.0 Estimated GFR > 60 BUN/Creatinine Ratio 37 Glucose 205 H POC Glucose 141 H Calcium 8.5 Phosphorus Magnesium Total Bilirubin Direct Bilirubin Indirect Bilirubin AST ALT Alkaline Phosphatase Total Protein Albumin Albumin/Globulin Ratio Coronavirus (PCR) Negative 05/22/20 05/22/20 05/22/20 01:37 05:05 05:05 WBC 6.7 RBC 3.00 L Hgb 10.1 L Hct 29.4 L MCV 98 H MCH 34 H MCHC 34 RDW 14.5 Plt Count 293 Add Manual Diff Complete Total Counted 100 Seg Neuts % (Manual) 72.0 H Lymphocytes % (Manual) 20.0 Monocytes % (Manual) 2.0 Eosinophils % (Manual) 4.0 Metamyelocytes % 2.0 Nucleated RBC % Not Reportable Seg Neutrophils # Man 4.8 Band Neutrophils # 0.0 Lymphocytes # (Manual) 1.3 Abs React Lymphs (Man) 0.0 Monocytes # (Manual) 0.1 Eosinophils # (Manual) 0.3 Basophils # (Manual) 0.0 Metamyelocytes # 0.1 Myelocytes # 0.0 Promyelocytes # 0.0 Blast Cells # 0.0 WBC Morphology Not Reportable Hypersegmented Neuts Not Reportable Hyposegmented Neuts Not Reportable Hypogranular Neuts Not Reportable Smudge Cells Not Reportable Toxic Granulation Not Reportable Toxic Vacuolation Not Reportable Dohle Bodies Not Reportable Pelger-Huet Anomaly Not Reportable Alexa Rods Not Reportable Platelet Estimate Consistent w auto Clumped Platelets Not Reportable Plt Clumps, EDTA Not Reportable Large Platelets Not Reportable Giant Platelets Not Reportable Platelet Satelliting Not Reportable Plt Morphology Comment Not Reportable RBC Morphology Not Reportable Dimorphic RBCs Not Reportable Polychromasia Not Reportable Hypochromasia Not Reportable Poikilocytosis Not Reportable Anisocytosis 1+ Microcytosis Not Reportable Macrocytosis Not Reportable Spherocytes Not Reportable Pappenheimer Bodies Not Reportable Sickle Cells Not Reportable Target Cells Not Reportable Tear Drop Cells Not Reportable Ovalocytes Not Reportable Helmet Cells Not Reportable Smith-Lester Bodies Not Reportable Duncan Rings Not Reportable Wendy Cells Not Reportable Bite Cells Not Reportable Crenated Cell Not Reportable Elliptocytes Not Reportable Acanthocytes (Spur) Not Reportable Rouleaux Not Reportable Hemoglobin C Crystals Not Reportable Schistocytes Not Reportable Malaria parasites Not Reportable Zaheer Bodies Not Reportable Hem Pathologist Commnt No Sodium 126 L Potassium 5.1 H D Chloride 95.7 L Carbon Dioxide 13 L Anion Gap 22 BUN 40 H Creatinine 1.0 Estimated GFR > 60 BUN/Creatinine Ratio 40 Glucose 251 H POC Glucose 157 H Calcium 8.7 Phosphorus 3.50 Magnesium 1.50 L Total Bilirubin 0.30 Direct Bilirubin 0.2 Indirect Bilirubin 0.1 AST 18 ALT 19 Alkaline Phosphatase 112 Total Protein 6.0 L D Albumin 3.0 L Albumin/Globulin Ratio 1.0 Coronavirus (PCR) 05/22/20 05/22/20 05:49 07:48 WBC RBC Hgb Hct MCV MCH MCHC RDW Plt Count Add Manual Diff Total Counted Seg Neuts % (Manual) Lymphocytes % (Manual) Monocytes % (Manual) Eosinophils % (Manual) Metamyelocytes % Nucleated RBC % Seg Neutrophils # Man Band Neutrophils # Lymphocytes # (Manual) Abs React Lymphs (Man) Monocytes # (Manual) Eosinophils # (Manual) Basophils # (Manual) Metamyelocytes # Myelocytes # Promyelocytes # Blast Cells # WBC Morphology Hypersegmented Neuts Hyposegmented Neuts Hypogranular Neuts Smudge Cells Toxic Granulation Toxic Vacuolation Dohle Bodies Pelger-Huet Anomaly Alexa Rods Platelet Estimate Clumped Platelets Plt Clumps, EDTA Large Platelets Giant Platelets Platelet Satelliting Plt Morphology Comment RBC Morphology Dimorphic RBCs Polychromasia Hypochromasia Poikilocytosis Anisocytosis Microcytosis Macrocytosis Spherocytes Pappenheimer Bodies Sickle Cells Target Cells Tear Drop Cells Ovalocytes Helmet Cells Smith-Lester Bodies Duncan Rings [place] Cells Bite Cells Crenated Cell Elliptocytes Acanthocytes (Spur) Rouleaux Hemoglobin C Crystals Schistocytes Malaria parasites Zaheer Bodies Hem Pathologist Commnt Sodium Potassium Chloride Carbon Dioxide Anion Gap BUN Creatinine Estimated GFR BUN/Creatinine Ratio Glucose POC Glucose 248 H 198 H Calcium Phosphorus Magnesium Total Bilirubin Direct Bilirubin Indirect Bilirubin AST ALT Alkaline Phosphatase Total Protein Albumin Albumin/Globulin Ratio Coronavirus (PCR)
[2020-05-22] MEDS: SODIUM CHLORIDE 0.9% 1000 ML 1,000 ML IV SCH ×2 (14:31→21:31)
[2020-05-22] MEDS: LORazepam 2 MG/ML VIAL IV PRN (22:56)
[2020-05-23 05:34] LABS: Hematocrit 26.4 % (35.5-45.6); Hemoglobin 9.1 gm/dl (11.8-15.2); Mean Corpuscular HGB Conc 35 % (32-34); Mean Corpuscular Volume 98 fl (84-94); Platelet Count 299 K/mm3 (140-440); Red Blood Count 2.69 M/mm3 (3.65-5.03); Red Cell Distribution Width 14.5 % (13.2-15.2)
[2020-05-23] MEDS: SODIUM CHLORIDE 0.9% 1000 ML 1,000 ML IV SCH (05:49)
[2020-05-23 05:54] LABS: BUN/Creatinine Ratio 40; Blood Urea Nitrogen 32 mg/dL (9-20); Calcium 8.5 mg/dL (8.4-10.2); Hemolysis Index 5
[2020-05-23] MEDS ORDERED: INSULIN NPH/REGULAR 70/30 INJ SUB-Q SCH (08:00)
[2020-05-23] MEDS: INSULIN NPH/REGULAR 70/30 INJ SUB-Q SCH ×2 (09:10→16:49)
[2020-05-23] MEDS: INSULIN LISPRO 100 UNIT/ML SUB-Q SCH ×5 (09:11→22:24)
[2020-05-23] MEDS ORDERED: SODIUM CHLORIDE 0.9% 1000 ML 1,000 ML IV SCH (09:30)
--- NOTE | 2020-05-23 10:14 | Anesthesia Day of Surgery ---
Anesthesia Day of Surgery - Day of Surgery Patient Examined: Yes Patient H&P Reviewed: Yes Patient is NPO: Yes
--- NOTE | 2020-05-23 10:14 | Anesthesia Consultation ---
Anesthesia Consult and Med Hx Date of service: 05/23/20 - Airway Anesthetic Teeth Evaluation: Good ROM Head & Neck: Adequate Mental/Hyoid Distance: Adequate Mallampati Class: Class II Intubation Access Assessment: Probably Good (large freeman, possible difficult mask ventilation) - Pulmonary Exam CTA: Yes - Cardiac Exam Cardiac Exam: RRR (tachycardia low 100s) - Pre-Operative Health Status ASA Pre-Surgery Classification: ASA3 Proposed Anesthetic Plan: MAC - Pulmonary Hx Smoking: No Hx Asthma: Yes (last inhaler use many years ago) Hx Respiratory Symptoms: Yes (occasional cough; COVID neg this admission) Hx Sleep Apnea: Yes (noncompliant with CPAP) - Cardiovascular System Hx Hypertension: Yes Hx Heart Attack/AMI: No Hx Percutaneous Transluminal Coronary Angioplasty (PTCA): No Hx Cardia Arrhythmia: No - Central Nervous System CVA: No - Endocrine Hx Renal 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 Glucose elevated on arrival to pre-procedure holding area but received sliding scale insulin just prior to arrival. Will recheck post-procedure and treat as appropriate.
--- NOTE | 2020-05-23 10:31 | Progress Note ---
Assessment and Plan Assessment and plan: --Melena/upper GI bleeding Current Visit: Yes Status: Acute Plan to address problem: Status post EGD; gastritis, duodenitis, esophageal ulcer Status post biopsy, advised PPI Diet as tolerated --DKA (diabetic ketoacidoses) A1c 17.2[05/20] Current Visit: Yes Status: Acute s/p DKA pathway, Insulin drip per protocol Proved, transition to long-acting insulin Blood sugars still high. Increase 70/30 insulin dose to 30 units twice a day Gradually increase as needed to prevent hypoglycemia Continue Accu-Chek sliding scale coverage ADA diet, A1c 17.2 Continue IV hydration Diabetic education, Diabetic diet education prior to discharge Possible home health nurse for disease monitoring at the time of discharge Patient needs weight reduction for better control of blood sugars --Severe metabolic acidosis/hyponatremia Current Visit: Yes Status: Acute Plan to address problem: Mild improvement remains acidotic aggressive IV hydration and supportive care --h/o Congenital adrenal hyperplasia, Current Visit: Yes Status: Chronic Plan to address problem: Noncompliant patient , consider steroids Patient will follow with his architectural representative upon discharge, No endocrinology service available --Hypotension; Current Visit: Yes Status: Acute Plan to address problem: Due to congenital adrenal hyperplasia , IV fluids, consider steroids if needed --Severe metabolic acidosis; due to DKA Current Visit: Yes Status: Acute Plan to address problem: Vigorous IV hydration, Treat the underlying DKA Closely monitor --Hyponatremia/pseudohyponatremia Current Visit: Yes Status: Acute Plan to address problem: Due to hyperglycemia, as blood sugars improve, sodium levels improve. Treat the underlying DKA -- Hyperkalemia Current Visit: Yes Status: Acute Plan to address problem: Closely monitor electrolytes Treat the underlying DKA Kayexalate if needed --TERRA (acute kidney injury) Current Visit: Yes Status: Acute Plan to address problem: Due to vasomotor nephropathy/dehydration. Reduce IV hydration, monitor renal function Avoid nephrotoxins, nephrology consult if no improvement, IV Protonix, --Hepatomegaly on CT abdomen Current Visit: Yes Status: Chronic Plan to address problem: Fatty infiltration, GI consulted, check ultrasound of the abdomen Low transaminases -- HTN (hypertension) Current Visit: Yes Status: Chronic Plan to address problem: Well-controlled, closely monitor. Possible obstructive sleep apnea As needed hydralazine --Morbid obesity; BMI 65.2; Current Visit: Yes Status: Chronic Plan to address problem: --possible obstructive sleep apnea: Current Visit: Yes Status: Chronic Plan to address problem: CPAP/BiPAP at night and as needed during daytime Patient needs outpatient sleep study if it is not already done --DVT prophylaxis Current Visit: Yes Status: Acute . Plan to address problem: Patient is allergic to Enoxaparin SCDs We will closely monitor the patient and adjust the management as needed Plan of care reviewed with the patient and his nurse 05/23/2020; EGD and biopsy Advised PPI avoid NSAIDs, follow GI upon discharge History Interval history: I have seen and examined the patient at the bedside Patient's chart and medications reviewed No new events reported by the nursing Patient underwent EGD Gastritis duodenitis esophageal ulcer status post biopsy Blood pressures still elevated significantly improved from yesterday Vital signs noted Hospitalist Physical - Constitutional Vitals: Temp Pulse Resp BP Pulse Ox 98.4 F 111 H 14 107/60 98 05/23/20 09:57 05/23/20 09:57 05/23/20 09:57 05/23/20 09:57 05/23/20 09:57 General appearance: Present: mild distress, well-nourished, obese (Morbidly obese) - EENT Eyes: Present: PERRL, EOM intact - Neck Neck: Present: supple, normal ROM - Respiratory Respiratory effort: normal Respiratory: bilateral: diminished, negative: rales, rhonchi, wheezing - Cardiovascular Rhythm: regular Heart Sounds: Present: S1 & S2 - Extremities Extremities: no ischemia, No edema - Abdominal General gastrointestinal: soft, non-tender, non-distended, normal bowel sounds - Integumentary Integumentary: Present: clear, warm - Psychiatric Psychiatric: appropriate mood/affect, cooperative - Neurologic Neurologic: CNII-XII intact, moves all extremities HEART Score - HEART Score Troponin: Troponin T < 0.010 ng/mL (0.00-0.029) 05/20/20 08:38 Results - Labs CBC & Chem 7: 05/23/20 05:04 05/23/20 05:04 Labs: Laboratory Last Values WBC 5.4 K/mm3 (4.5-11.0) 05/23/20 05:04 RBC 2.69 M/mm3 (3.65-5.03) L 05/23/20 05:04 Hgb 9.1 gm/dl (11.8-15.2) L 05/23/20 05:04 Hct 26.4 % (35.5-45.6) L 05/23/20 05:04 MCV 98 fl (84-94) H 05/23/20 05:04 MCH 34 pg (28-32) H 05/23/20 05:04 MCHC 35 % (32-34) H 05/23/20 05:04 RDW 14.5 % (13.2-15.2) 05/23/20 05:04 Plt Count 299 K/mm3 (140-440) 05/23/20 05:04 Lymph % (Auto) 17.2 % (13.4-35.0) 05/20/20 08:38 [place] % (Auto) 7.0 % (0.0-7.3) 05/20/20 08:38 Eos % (Auto) 0.7 % (0.0-4.3) 05/20/20 08:38 Baso % (Auto) 2.2 % (0.0-1.8) H 05/20/20 08:38 Lymph # (Auto) 1.9 K/mm3 (1.2-5.4) 05/20/20 08:38 [place] # (Auto) 0.8 K/mm3 (0.0-0.8) 05/20/20 08:38 Eos # (Auto) 0.1 K/mm3 (0.0-0.4) 05/20/20 08:38 Baso # (Auto) 0.2 K/mm3 (0.0-0.1) H 05/20/20 08:38 Add Manual Diff Complete 05/22/20 05:05 Total Counted 100 05/22/20 05:05 Seg Neutrophils % 72.9 % (40.0-70.0) H 05/20/20 08:38 Seg Neuts % (Manual) 72.0 % (40.0-70.0) H 05/22/20 05:05 Lymphocytes % (Manual) 20.0 % (13.4-35.0) 05/22/20 05:05 Monocytes % (Manual) 2.0 % (0.0-7.3) 05/22/20 05:05 Eosinophils % (Manual) 4.0 % (0.0-4.3) 05/22/20 05:05 Metamyelocytes % 2.0 % 05/22/20 05:05 Nucleated RBC % Not Reportable 05/22/20 05:05 Seg Neutrophils # 7.9 K/mm3 (1.8-7.7) H 05/20/20 08:38 Seg Neutrophils # Man 4.8 K/mm3 (1.8-7.7) 05/22/20 05:05 Band Neutrophils # 0.0 K/mm3 05/22/20 05:05 Lymphocytes # (Manual) 1.3 K/mm3 (1.2-5.4) 05/22/20 05:05 Abs React Lymphs (Man) 0.0 K/mm3 05/22/20 05:05 Monocytes # (Manual) 0.1 K/mm3 (0.0-0.8) 05/22/20 05:05 Eosinophils # (Manual) 0.3 K/mm3 (0.0-0.4) 05/22/20 05:05 Basophils # (Manual) 0.0 K/mm3 (0.0-0.1) 05/22/20 05:05 Metamyelocytes # 0.1 K/mm3 05/22/20 05:05 Myelocytes # 0.0 K/mm3 05/22/20 05:05 Promyelocytes # 0.0 K/mm3 05/22/20 05:05 Blast Cells # 0.0 K/mm3 05/22/20 05:05 WBC Morphology Not Reportable 05/22/20 05:05 Hypersegmented Neuts Not Reportable 05/22/20 05:05 Hyposegmented Neuts Not Reportable 05/22/20 05:05 Hypogranular Neuts Not Reportable 05/22/20 05:05 Smudge Cells Not Reportable 05/22/20 05:05 Toxic Granulation Not Reportable 05/22/20 05:05 Toxic Vacuolation Not Reportable 05/22/20 05:05 Dohle Bodies Not Reportable 05/22/20 05:05 Pelger-Huet Anomaly Not Reportable 05/22/20 05:05 Alexa Rods Not Reportable 05/22/20 05:05 Platelet Estimate Consistent w auto 05/22/20 05:05 Clumped Platelets Not Reportable 05/22/20 05:05 Plt Clumps, EDTA Not Reportable 05/22/20 05:05 Large Platelets Not Reportable 05/22/20 05:05 Giant Platelets Not Reportable 05/22/20 05:05 Platelet Satelliting Not Reportable 05/22/20 05:05 Plt Morphology Comment Not Reportable 05/22/20 05:05 RBC Morphology Not Reportable 05/22/20 05:05 Dimorphic RBCs Not Reportable 05/22/20 05:05 Polychromasia Not Reportable 05/22/20 05:05 Hypochromasia Not Reportable 05/22/20 05:05 Poikilocytosis Not Reportable 05/22/20 05:05 Anisocytosis 1+ 05/22/20 05:05 Microcytosis Not Reportable 05/22/20 05:05 Macrocytosis Not Reportable 05/22/20 05:05 Spherocytes Not Reportable 05/22/20 05:05 Pappenheimer Bodies Not Reportable 05/22/20 05:05 Sickle Cells Not Reportable 05/22/20 05:05 Target Cells Not Reportable 05/22/20 05:05 Tear Drop Cells Not Reportable 05/22/20 05:05 Ovalocytes Not Reportable 05/22/20 05:05 Helmet Cells Not Reportable 05/22/20 05:05 [place] Bodies Not Reportable 05/22/20 05:05 Elma Rings Not Reportable 05/22/20 05:05 Wendy Cells Not Reportable 05/22/20 05:05 Bite Cells Not Reportable 05/22/20 05:05 Crenated Cell Not Reportable 05/22/20 05:05 Elliptocytes Not Reportable 05/22/20 05:05 Acanthocytes (Spur) Not Reportable 05/22/20 05:05 Rouleaux Not Reportable 05/22/20 05:05 Hemoglobin C Crystals Not Reportable 05/22/20 05:05 Schistocytes Not Reportable 05/22/20 05:05 Malaria parasites Not Reportable 05/22/20 05:05 Zaheer Bodies Not Reportable 05/22/20 05:05 Hem Pathologist Commnt No 05/22/20 05:05 PT 12.7 Sec. (12.2-14.9) 05/20/20 08:38 INR 0.96 (0.87-1.13) 05/20/20 08:38 APTT 28.6 Sec. (24.2-36.6) 05/20/20 08:38 VBG pH 7.240 (7.320-7.420) L 05/20/20 09:00 Sodium 128 mmol/L (137-145) L 05/23/20 05:04 Potassium 4.7 mmol/L (3.6-5.0) 05/23/20 05:04 Chloride 98.2 mmol/L (98-107) 05/23/20 05:04 Carbon Dioxide 16 mmol/L (22-30) L 05/23/20 05:04 Anion Gap 19 mmol/L 05/23/20 05:04 BUN 32 mg/dL (9-20) H 05/23/20 05:04 Creatinine 0.8 mg/dL (0.8-1.3) 05/23/20 05:04 Estimated GFR > 60 ml/min 05/23/20 05:04 BUN/Creatinine Ratio 40 % 05/23/20 05:04 Glucose 328 mg/dL (75-100) H 05/23/20 05:04 POC Glucose 323 mg/dL (70-105) H 05/22/20 21:12 Hemoglobin A1c 17.2 % (4-6) H 05/20/20 18:00 Ketones Quantitative Moderate (Negative) 05/20/20 09:00 Calcium 8.5 mg/dL (8.4-10.2) 05/23/20 05:04 Phosphorus 3.60 mg/dL (2.5-4.5) 05/23/20 05:04 Magnesium 2.30 mg/dL (1.7-2.3) 05/23/20 05:04 Total Bilirubin 0.30 mg/dL (0.1-1.2) 05/22/20 05:05 Direct Bilirubin 0.2 mg/dL (0-0.2) 05/22/20 05:05 Indirect Bilirubin 0.1 mg/dL 05/22/20 05:05 AST 18 units/L (5-40) 05/22/20 05:05 ALT 19 units/L (7-56) 05/22/20 05:05 Alkaline Phosphatase 112 units/L (35-129) 05/22/20 05:05 Total Creatine Kinase < 7 units/L (55-170) L 05/20/20 09:00 CK-MB (CK-2) < 1.0 ng/mL (0.0-4.0) 05/20/20 09:00 CK-MB (CK-2) Rel Index 0.0 (0-4) 05/20/20 09:00 Troponin T < 0.010 ng/mL (0.00-0.029) 05/20/20 08:38 NT-Pro-B Natriuret Pep 53.42 pg/mL (0-450) 05/20/20 09:00 Total Protein 6.0 g/dL (6.3-8.2) L D 05/22/20 05:05 Albumin 3.0 g/dL (3.9-5) L 05/22/20 05:05 Albumin/Globulin Ratio 1.0 % 05/22/20 05:05 Lipase 16 units/L (13-60) 05/20/20 08:38 Urine Color Yellow (Yellow) 05/20/20 18:28 Urine Turbidity Slightly-cloudy (Clear) 05/20/20 18:28 Urine pH 5.0 (5.0-7.0) 05/20/20 18:28 Ur Specific [place] 1.029 (1.003-1.030) 05/20/20 18:28 Urine Protein 30 mg/dl mg/dL (Negative) 05/20/20 18:28 Urine Glucose (UA) >=500 mg/dL (Negative) 05/20/20 18:28 Urine Ketones 20 mg/dL (Negative) 05/20/20 18:28 Urine Blood Neg (Negative) 05/20/20 18:28 Urine Nitrite Neg (Negative) 05/20/20 18:28 Urine Bilirubin Neg (Negative) 05/20/20 18:28 Urine Urobilinogen < 2.0 mg/dL (<2.0) 05/20/20 18:28 Ur Leukocyte Esterase Neg (Negative) 05/20/20 18:28 Urine WBC (Auto) 1.0 /HPF (0.0-6.0) 05/20/20 18:28 Urine RBC (Auto) 2.0 /HPF (0.0-6.0) 05/20/20 18:28 U Epithel Cells (Auto) 1.0 /HPF (0-13.0) 05/20/20 18:28 Coronavirus (PCR) Negative (Negative) 05/21/20 Unknown Blood Type O NEGATIVE 05/20/20 08:38 Antibody Screen Negative 05/20/20 08:38 Microbiology: Microbiology 05/21/20 10:30 Stool Stool Occult Blood (SHIRLENE) - Final 05/20/20 10:12 Peripheral/Venous Blood Culture - Preliminary NO GROWTH AFTER 48 HOURS 05/20/20 10:12 Peripheral/Venous Blood Culture - Preliminary NO GROWTH AFTER 48 HOURS Voss/IV: Voiding Method Toilet Active Medications - Current Medications Current Medications: Generic Name Dose Route Start Last Admin Trade Name Freq PRN Reason Stop Dose Admin Dextrose 50 ml 05/21/20 18:58 Dextrose 50% In Water (25gm) 50 Ml Syringe IV Q30MIN PRN Hypoglycemia Protocol Fludrocortisone Acetate 0.2 mg 05/22/20 11:00 05/22/20 10:52 Fludrocortisone 0.1 Mg Tab PO 0.2 mg QDAY EMANUEL Administration Sodium Chloride 1,000 mls @ 50 mls/hr 05/23/20 09:30 Nacl 0.9% 1000 Ml IV DIRECT EMANUEL Insulin Human Isoph/Insulin Regular 30 unit 05/23/20 08:00 05/23/20 09:10 Insulin Nph/Regular 70/30 Inj SUB-Q 30 unit BIDDIAB EMANUEL Administration Insulin Human Lispro 0 unit 05/21/20 22:00 05/23/20 09:11 Insulin Lispro 100 Unit/Ml SUB-Q 6 unit ACHS EMANUEL Administration Protocol Lorazepam 1 mg 05/20/20 23:15 05/22/20 22:56 Lorazepam 2 Mg/Ml Vial IV 1 mg Q4H PRN Administration Agitation Pantoprazole Sodium 40 mg 05/23/20 10:00 Pantoprazole 40 Mg Inj IV BID EMANUEL Sodium Chloride 10 ml 05/20/20 18:00 05/20/20 21:18 Sodium Chloride 0.9% 10 Ml Flush Syringe IV 10 ml PRN PRN Administration LINE FLUSH Nutrition/Malnutrition Assess - Dietary Evaluation Nutrition/Malnutrition Findings: Nutrition Notes Start: 05/21/20 10:21 Freq: Status: Active Protocol: Document 05/21/20 10:21 KIRILL (Rec: 05/21/20 10:29 [facility] [id number]) Nutrition Notes Need for Assessment generated from: MD Order,Education Initial or Follow up Brief Note Current Diagnosis Acute Kidney Injury,Diabetes, Hypertension Other Pertinent Diagnosis DKA, new onset DM, GIB, asthma , sleep apnea, congenital adrenal hyperplasia Current Diet NPO Labs/Tests A1C 17.2 K 5.4 BUN 46 Cr 1.4 Pertinent Medications D5 1/2NS at 125ml/hr, Insulin gtt, NS at 125ml/hr Height 5 ft 4 in Weight 172.365 kg [place] Body Weight (kg) 59.09 BMI 65.2 Weight Status Morbidly Obese Subjective/Other Information RD consulted for diet education; pt also screened for new onset of DM. Pt admitted with S/S of hyperglycemia. Burn Absent Trauma Absent Minimum of two criteria No Is patient on ventilator? No Is Patient Ambulatory and/or Out of Bed No REE-([facility]-confined to bed) 3090.780 Kcal/Kg value to use for calculation 11 Approximate Energy Requirements Using 1896 kcal/Kg Calculation Used for Recommendations Kcal/kg Additional Notes Pro needs up to 2.5g/kg IBW: up to 148g/day Fluid needs 1ml/kcal Nutrition Intervention Follow-Up By: 05/23/20 Additional Comments F/U: DM diet education (new onset), diet advancement
[2020-05-23] MEDS ORDERED: propofoL 200 MG/20 ML VIAL IV ONE ×2 (10:42→10:46)
--- NOTE | 2020-05-23 11:05 | Post Operative Note ---
Pre-op diagnosis: gi bleed Post-op diagnosis: same Findings: EGD: Linear 4-10 mm white based ulcers noted mid esophagus. Also ringed esophagus raising possible EOE noted (bx's) - small hiatal hernia - mild antral gastritis (bx's) - mild duodenitis - negative other Procedure: EGD w/ bx's Anesthesia: MAC Surgeon: EDGARDO TORRES Estimated blood loss: none Pathology: list Specimen disposition: to lab Condition: stable Disposition: floor
--- NOTE | 2020-05-23 11:34 | Operative Report ---
PROCEDURE: EGD with core biopsies. INDICATIONS: 1. Anemia. 2. Possible gastrointestinal bleed. MEDICATIONS: Propofol per RETAIL SUPPORT MANAGER. COMPLICATIONS: None. DESCRIPTION OF PROCEDURE: The patient brought to procedure suite. The patient had the procedure discussed with him at length. All risks, complications, and benefits discussed after which the patient signed for the procedure to be performed. The patient was placed in the left lateral decubitus position. Mouth block was placed in the patient's oral cavity. After adequate sedation medication as above, endoscope placed in mouth and brought to level of the second portion of duodenum. Retroflexion view performed. The patient's vital signs remained stable throughout the procedure. FINDINGS: There were 3 linear white base ulcers 4-12 mm noted in mid esophagus. It should also be noted there was a ringed appearance to the esophagus, raising the possibility of eosinophilic esophagitis. Whether or not these may be also secondary to tear from eosinophilic esophagitis versus other pathology is unknown. Multiple biopsies were taken and sent to pathology. Small hiatal hernia noted at the GE junction, which was 40 cm from the gums. Irregular Z-line noted at GE junction with biopsies taken and sent to pathology. The remaining esophagus otherwise appeared to be normal. There was a small amount of remnant semisolid food material noted in the gastric body. This was fairly easily suctioned and removed. Mild antral gastritis noted. Biopsies were taken and sent to pathology. The remaining stomach otherwise appeared to be normal. The duodenum appeared to be normal. Retroflexion view performed in the stomach showed no other pathology other than noted above. The patient tolerated the procedure well. No complications during the procedure. IMPRESSION: 1. Hiatal hernia. 2. Irregular Z-line, biopsies performed. 3. Esophageal ulcers with possible eosinophilic esophagitis, biopsies performed. 4. Mild gastritis, biopsies performed. 5. Mild remnant fluid in the stomach noted. 6. Otherwise, normal EGD. RECOMMENDATIONS: 1. Follow up biopsy results. 2. If H. pylori positive, treat. 3. PPI daily. 4. Advance diet. 5. If H and H stable in a.m., okay to discharge from GI standpoint. JOB# [id number] [facility]
--- NOTE | 2020-05-23 11:53 | Post Anesthesia Evaluation ---
- Post Anesthesia Evaluation Patient Participated: Yes Airway Patent: Yes Stable Respiratory Function: Yes Nausea/Vomiting: No Temp > 96.8F: Yes Pain Manageable: Yes Adequeate Hydration: Yes Anesthesia Complications: No
[2020-05-23] MEDS: PANTOPRAZOLE 40 MG INJ IV SCH ×2 (12:21→22:24)
[2020-05-23] MEDS: FLUDROCORTISONE 0.1 MG TAB PO SCH (13:09)
[2020-05-23] MEDS: SODIUM BICARBONATE 650 MG TAB PO SCH (22:24)
[2020-05-24 07:20] LABS: BUN/Creatinine Ratio 33; Blood Urea Nitrogen 26 mg/dL (9-20); Calcium 8.4 mg/dL (8.4-10.2); Hemolysis Index 4
[2020-05-24] MEDS: INSULIN NPH/REGULAR 70/30 INJ SUB-Q SCH ×3 (09:07→17:55)
[2020-05-24] MEDS: SODIUM BICARBONATE 650 MG TAB PO SCH ×2 (09:08→22:06)
[2020-05-24] MEDS: FLUDROCORTISONE 0.1 MG TAB PO SCH (09:08)
[2020-05-24] MEDS: INSULIN LISPRO 100 UNIT/ML SUB-Q SCH ×4 (09:08→22:07)
[2020-05-24] MEDS: PANTOPRAZOLE 40 MG INJ IV SCH (09:09)
--- NOTE | 2020-05-24 12:25 | Progress Note ---
Assessment and Plan Assessment and plan: --Melena/upper GI bleeding Current Visit: Yes Status: Acute Plan to address problem: Status post EGD; gastritis, duodenitis, esophageal ulcer Status post biopsy, advised PPI Diet as tolerated --DKA (diabetic ketoacidoses) A1c 17.2[05/20] Current Visit: Yes Status: Acute s/p DKA pathway, Insulin drip per protocol Continue Accu-Chek sliding scale coverage ADA diet, A1c 17.2 Continue IV hydration Diabetic education, Diabetic diet education prior to disch arge Possible home health nurse for disease monitoring at the time of discharge Patient needs weight reduction for better control of blood sugars. Increase Novolin 70/30 --New onset type 2 diabetes mellitus; Current Visit: Yes Status: Acute Plan to address problem: Blood sugar still uncontrolled, increase 70/30 Novolin from 30-34 units Closely monitor blood sugars and adjust --Severe metabolic acidosis/hyponatremia Current Visit: Yes Status: Acute Plan to address problem: Mild improvement remains acidotic aggressive IV hydration and supportive care. 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 Treat the underlying DKA -- Hyperkalemia Current Visit: Yes Status: Acute Plan to address problem: Closely monitor electrolytes Treat the underlying DKA Kayexalate if needed --TERRA (acute kidney injury) Current Visit: Yes Status: Acute Plan to address problem: Due to vasomotor nephropathy/dehydration. Reduce IV hydration, monitor renal function Avoid nephrotoxins, nephrology consult if no improvement, IV Protonix, --Hepatomegaly on CT abdomen Current Visit: Yes Status: Chronic Plan to address problem: Fatty infiltration, GI consulted, check ultrasound of the abdomen Low transaminases -- HTN (hypertension) Current Visit: Yes Status: Chronic Plan to address problem: Well-controlled, closely monitor. Possible obstructive sleep apnea As needed hydralazine --Morbid obesity; BMI 65.2; Current Visit: Yes Status: Chronic . Plan to address problem: Patient need lifestyle changes, dietary modification, exercise as tolerated and weight reduction --possible obstructive sleep apnea: Current Visit: Yes Status: Chronic Plan to address problem: CPAP/BiPAP at night and as needed during daytime Patient needs outpatient sleep study if it is not already done --DVT prophylaxis Current Visit: Yes Status: Acute . Plan to address problem: Patient is allergic to Enoxaparin SCDs DC planning per case management; to assist with discharge planning/medications/resources We will closely monitor the patient and adjust the management as needed Plan of care reviewed with the patient and his nurse Possible discharge home tomorrow 05/23/2020; EGD and biopsy Advised PPI avoid NSAIDs, follow GI upon discharge 05/24/2020; blood sugar still uncontrolled, increase 70/30 Novolin dose Ambulate as tolerated, diabetic education, nutrition education Possible discharge home tomorrow if stable History Interval history: I have seen and examined the patient at the bedside this morning Patient's chart and medications reviewed Patient's sugars slightly improved, still remains high Will increase 70/30 Novolin insulin dose Patient has no new complaints Anxious to go home Vital signs noted Hospitalist Physical - Constitutional Vitals: Temp Pulse Resp BP Pulse Ox 98.0 F 101 H 18 108/41 96 05/24/20 07:43 05/24/20 07:43 05/24/20 10:00 05/24/20 07:43 05/24/20 10:00 General appearance: Present: no acute distress, well-nourished, obese (Morbidly obese) - EENT Eyes: Present: PERRL, EOM intact - Neck Neck: Present: supple, normal ROM - Respiratory Respiratory effort: normal Respiratory: bilateral: diminished, rhonchi, negative: rales, wheezing - Cardiovascular Rhythm: regular Heart Sounds: Present: S1 & S2 - Extremities Extremities: no ischemia, No edema - Abdominal General gastrointestinal: soft, non-tender, non-distended, normal bowel sounds - Integumentary Integumentary: Present: clear, warm - Psychiatric Psychiatric: appropriate mood/affect, cooperative - Neurologic Neurologic: moves all extremities HEART Score - HEART Score Troponin: Troponin T < 0.010 ng/mL (0.00-0.029) 05/20/20 08:38 Results - Labs CBC & Chem 7: 05/23/20 05:04 05/24/20 04:33 Labs: Laboratory Last Values WBC 5.4 K/mm3 (4.5-11.0) 05/23/20 05:04 RBC 2.69 M/mm3 (3.65-5.03) L 05/23/20 05:04 Hgb 9.1 gm/dl (11.8-15.2) L 05/23/20 05:04 Hct 26.4 % (35.5-45.6) L 05/23/20 05:04 MCV 98 fl (84-94) H 05/23/20 05:04 MCH 34 pg (28-32) H 05/23/20 05:04 MCHC 35 % (32-34) H 05/23/20 05:04 RDW 14.5 % (13.2-15.2) 05/23/20 05:04 Plt Count 299 K/mm3 (140-440) 05/23/20 05:04 Lymph % (Auto) 17.2 % (13.4-35.0) 05/20/20 08:38 [place] % (Auto) 7.0 % (0.0-7.3) 05/20/20 08:38 Eos % (Auto) 0.7 % (0.0-4.3) 05/20/20 08:38 Baso % (Auto) 2.2 % (0.0-1.8) H 05/20/20 08:38 Lymph # (Auto) 1.9 K/mm3 (1.2-5.4) 05/20/20 08:38 [place] # (Auto) 0.8 K/mm3 (0.0-0.8) 05/20/20 08:38 Eos # (Auto) 0.1 K/mm3 (0.0-0.4) 05/20/20 08:38 Baso # (Auto) 0.2 K/mm3 (0.0-0.1) H 05/20/20 08:38 Add Manual Diff Complete 05/22/20 05:05 Total Counted 100 05/22/20 05:05 Seg Neutrophils % 72.9 % (40.0-70.0) H 05/20/20 08:38 Seg Neuts % (Manual) 72.0 % (40.0-70.0) H 05/22/20 05:05 Lymphocytes % (Manual) 20.0 % (13.4-35.0) 05/22/20 05:05 Monocytes % (Manual) 2.0 % (0.0-7.3) 05/22/20 05:05 Eosinophils % (Manual) 4.0 % (0.0-4.3) 05/22/20 05:05 Metamyelocytes % 2.0 % 05/22/20 05:05 Nucleated RBC % Not Reportable 05/22/20 05:05 Seg Neutrophils # 7.9 K/mm3 (1.8-7.7) H 05/20/20 08:38 Seg Neutrophils # Man 4.8 K/mm3 (1.8-7.7) 05/22/20 05:05 Band Neutrophils # 0.0 K/mm3 05/22/20 05:05 Lymphocytes # (Manual) 1.3 K/mm3 (1.2-5.4) 05/22/20 05:05 Abs React Lymphs (Man) 0.0 K/mm3 05/22/20 05:05 Monocytes # (Manual) 0.1 K/mm3 (0.0-0.8) 05/22/20 05:05 Eosinophils # (Manual) 0.3 K/mm3 (0.0-0.4) 05/22/20 05:05 Basophils # (Manual) 0.0 K/mm3 (0.0-0.1) 05/22/20 05:05 Metamyelocytes # 0.1 K/mm3 05/22/20 05:05 Myelocytes # 0.0 K/mm3 05/22/20 05:05 Promyelocytes # 0.0 K/mm3 05/22/20 05:05 Blast Cells # 0.0 K/mm3 05/22/20 05:05 WBC Morphology Not Reportable 05/22/20 05:05 Hypersegmented Neuts Not Reportable 05/22/20 05:05 Hyposegmented Neuts Not Reportable 05/22/20 05:05 Hypogranular Neuts Not Reportable 05/22/20 05:05 Smudge Cells Not Reportable 05/22/20 05:05 Toxic Granulation Not Reportable 05/22/20 05:05 Toxic Vacuolation Not Reportable 05/22/20 05:05 Dohle Bodies Not Reportable 05/22/20 05:05 Pelger-Huet Anomaly Not Reportable 05/22/20 05:05 Alexa Rods Not Reportable 05/22/20 05:05 Platelet Estimate Consistent w auto 05/22/20 05:05 Clumped Platelets Not Reportable 05/22/20 05:05 Plt Clumps, EDTA Not Reportable 05/22/20 05:05 Large Platelets Not Reportable 05/22/20 05:05 Giant Platelets Not Reportable 05/22/20 05:05 Platelet Satelliting Not Reportable 05/22/20 05:05 Plt Morphology Comment Not Reportable 05/22/20 05:05 RBC Morphology Not Reportable 05/22/20 05:05 Dimorphic RBCs Not Reportable 05/22/20 05:05 Polychromasia Not Reportable 05/22/20 05:05 Hypochromasia Not Reportable 05/22/20 05:05 Poikilocytosis Not Reportable 05/22/20 05:05 Anisocytosis 1+ 05/22/20 05:05 Microcytosis Not Reportable 05/22/20 05:05 Macrocytosis Not Reportable 05/22/20 05:05 Spherocytes Not Reportable 05/22/20 05:05 Pappenheimer Bodies Not Reportable 05/22/20 05:05 Sickle Cells Not Reportable 05/22/20 05:05 Target Cells Not Reportable 05/22/20 05:05 Tear Drop Cells Not Reportable 05/22/20 05:05 Ovalocytes Not Reportable 05/22/20 05:05 Helmet Cells Not Reportable 05/22/20 05:05 [place] Bodies Not Reportable 05/22/20 05:05 Burdette Rings Not Reportable 05/22/20 05:05 Jeffrey Cells Not Reportable 05/22/20 05:05 Bite Cells Not Reportable 05/22/20 05:05 Crenated Cell Not Reportable 05/22/20 05:05 Elliptocytes Not Reportable 05/22/20 05:05 Acanthocytes (Spur) Not Reportable 05/22/20 05:05 Rouleaux Not Reportable 05/22/20 05:05 Hemoglobin C Crystals Not Reportable 05/22/20 05:05 Schistocytes Not Reportable 05/22/20 05:05 Malaria parasites Not Reportable 05/22/20 05:05 Zaheer Bodies Not Reportable 05/22/20 05:05 Hem Pathologist Commnt No 05/22/20 05:05 PT 12.7 Sec. (12.2-14.9) 05/20/20 08:38 INR 0.96 (0.87-1.13) 05/20/20 08:38 APTT 28.6 Sec. (24.2-36.6) 05/20/20 08:38 VBG pH 7.240 (7.320-7.420) L 05/20/20 09:00 Sodium 132 mmol/L (137-145) L 05/24/20 04:33 Potassium 3.7 mmol/L (3.6-5.0) D 05/24/20 04:33 Chloride 101.2 mmol/L (98-107) 05/24/20 04:33 Carbon Dioxide 18 mmol/L (22-30) L 05/24/20 04:33 Anion Gap 17 mmol/L 05/24/20 04:33 BUN 26 mg/dL (9-20) H 05/24/20 04:33 Creatinine 0.8 mg/dL (0.8-1.3) 05/24/20 04:33 Estimated GFR > 60 ml/min 05/24/20 04:33 BUN/Creatinine Ratio 33 % 05/24/20 04:33 Glucose 269 mg/dL (75-100) H 05/24/20 04:33 POC Glucose 278 mg/dL (70-105) H 05/24/20 07:43 Hemoglobin A1c 17.2 % (4-6) H 05/20/20 18:00 Ketones Quantitative Moderate (Negative) 05/20/20 09:00 Calcium 8.4 mg/dL (8.4-10.2) 05/24/20 04:33 Phosphorus 3.30 mg/dL (2.5-4.5) 05/24/20 04:33 Magnesium 1.70 mg/dL (1.7-2.3) 05/24/20 04:33 Total Bilirubin 0.30 mg/dL (0.1-1.2) 05/22/20 05:05 Direct Bilirubin 0.2 mg/dL (0-0.2) 05/22/20 05:05 Indirect Bilirubin 0.1 mg/dL 05/22/20 05:05 AST 18 units/L (5-40) 05/22/20 05:05 ALT 19 units/L (7-56) 05/22/20 05:05 Alkaline Phosphatase 112 units/L (35-129) 05/22/20 05:05 Total Creatine Kinase < 7 units/L (55-170) L 05/20/20 09:00 CK-MB (CK-2) < 1.0 ng/mL (0.0-4.0) 05/20/20 09:00 CK-MB (CK-2) Rel Index 0.0 (0-4) 05/20/20 09:00 Troponin T < 0.010 ng/mL (0.00-0.029) 05/20/20 08:38 NT-Pro-B Natriuret Pep 53.42 pg/mL (0-450) 05/20/20 09:00 Total Protein 6.0 g/dL (6.3-8.2) L D 05/22/20 05:05 Albumin 3.0 g/dL (3.9-5) L 05/22/20 05:05 Albumin/Globulin Ratio 1.0 % 05/22/20 05:05 Lipase 16 units/L (13-60) 05/20/20 08:38 Total Cortisol 11.5 mcg/dL () 05/21/20 05:58 Urine Color Yellow (Yellow) 05/20/20 18:28 Urine Turbidity Slightly-cloudy (Clear) 05/20/20 18:28 Urine pH 5.0 (5.0-7.0) 05/20/20 18:28 Ur Specific [place] 1.029 (1.003-1.030) 05/20/20 18:28 Urine Protein 30 mg/dl mg/dL (Negative) 05/20/20 18:28 Urine Glucose (UA) >=500 mg/dL (Negative) 05/20/20 18:28 Urine Ketones 20 mg/dL (Negative) 05/20/20 18:28 Urine Blood Neg (Negative) 05/20/20 18:28 Urine Nitrite Neg (Negative) 05/20/20 18: Urine Bilirubin Neg (Negative) 05/20/20 18:28 Urine Urobilinogen < 2.0 mg/dL (<2.0) 05/20/20 18:28 Ur Leukocyte Esterase Neg (Negative) 05/20/20 18:28 Urine WBC (Auto) 1.0 /HPF (0.0-6.0) 05/20/20 18:28 Urine RBC (Auto) 2.0 /HPF (0.0-6.0) 05/20/20 18:28 U Epithel Cells (Auto) 1.0 /HPF (0-13.0) 05/20/20 18:28 Coronavirus (PCR) Negative (Negative) 05/21/20 Unknown Blood Type O NEGATIVE 05/20/20 08:38 Antibody Screen Negative 05/20/20 08:38 Microbiology: Microbiology 05/20/20 10:12 Peripheral/Venous Blood Culture - Preliminary NO GROWTH AFTER 4 DAYS 05/20/20 10:12 Peripheral/Venous Blood Culture - Preliminary NO GROWTH AFTER 4 DAYS Voss/IV: Voiding Method Urinal Active Medications - Current Medications Current Medications: Generic Name Dose Route Start Last Admin Trade Name Freq PRN Reason Stop Dose Admin Dextrose 50 ml 05/21/20 18:58 Dextrose 50% In Water (25gm) 50 Ml Syringe IV Q30MIN PRN Hypoglycemia Protocol Fludrocortisone Acetate 0.2 mg 05/22/20 11:00 05/24/20 09:08 Fludrocortisone 0.1 Mg Tab PO 0.2 mg QDAY EMANUEL Administration Sodium Chloride 1,000 mls @ 50 mls/hr 05/23/20 09:30 Nacl 0.9% 1000 Ml IV DIRECT EMANUEL Insulin Human Isoph/Insulin Regular 34 unit 05/24/20 10:00 05/24/20 11:53 Insulin Nph/Regular 70/30 Inj SUB-Q Not Given BIDDIAB EMANUEL Insulin Human Lispro 0 unit 05/21/20 22:00 05/24/20 09:08 Insulin Lispro 100 Unit/Ml SUB-Q 4 unit ACHS EMANUEL Administration Protocol Lorazepam 1 mg 05/20/20 23:15 05/22/20 22:56 Lorazepam 2 Mg/Ml Vial IV 1 mg Q4H PRN Administration Agitation Pantoprazole Sodium 40 mg 05/24/20 16:30 Pantoprazole 40 Mg Tab PO BIDAC [facility] Sodium Bicarbonate 650 mg 05/23/20 22:00 05/24/20 09:08 Sodium Bicarbonate 650 Mg Tab PO 650 mg BID EMANUEL Administration Sodium Chloride 10 ml 05/20/20 18:00 05/24/20 09:09 Sodium Chloride 0.9% 10 Ml Flush Syringe IV 10 ml PRN PRN Administration LINE FLUSH Nutrition/Malnutrition Assess - Dietary Evaluation Nutrition/Malnutrition Findings: Nutrition Notes Start: 05/21/20 10:21 Freq: Status: Active Protocol: Document 05/23/20 12:44 MK (Rec: 05/23/20 12:53 MK [id number]) Nutrition Notes Initial or Follow up Brief Note Current Diagnosis Acute Kidney Injury,Diabetes, Hypertension Other Pertinent Diagnosis DKA, new onset DM, GIB, asthma , sleep apnea, congenital adrenal hyperplasia Current Diet Consistent CHO Subjective/Other Information FU for diet education. Pt reports family member has had DM and has a good understanding how to manage it with diet. Pt open and receptive to education. Pt states he has a good appetite and is hungry. Pt NPO for procedure this AM. #1 Nutrition Diagnosis Food and nutrition-related knowledge deficit Etiology lack of prior DM education As Evidenced by Signs and Symptoms pt had questions about high CHO foods Nutrition Intervention Teaching Recipient Patient Learning Readiness Good Teaching Methods Discussion,Handout Response to Teaching Verbalize understanding Education Handouts Provided Carb Counting for those with DM Nutriton Label Reading Tips Barriers to Learning No Barriers RD phone number provided Yes Patient aware of follow up options Yes Revisit per MD consult or patient Sign Off request:
--- NOTE | 2020-05-24 17:17 | Gastroenterology Progress Note ---
Assessment and Plan GI: anemia w/ egd showing esophageal ulcers - stable w/o further signs bleeding - continue PPI qd - if h/h stable in am ok to dc from GI standpoint Subjective Date of service: 05/24/20 Interval history: - no signs bleeding overnight. Reports decrease dark stools Objective - Constitutional Vitals: Temp Pulse Resp BP Pulse Ox 98.0 F 90 18 108/41 96 05/24/20 07:43 05/24/20 12:00 05/24/20 10:00 05/24/20 07:43 05/24/20 10:00 General appearance: no acute distress - EENT Eyes: PERRL - Respiratory Respiratory: bilateral: CTA - Cardiovascular Rhythm: regular Heart Sounds: Present: S1 & S2 - Gastrointestinal General gastrointestinal: Present: soft, non-tender, non-distended - Labs CBC & Chem 7: 05/23/20 05:04 05/24/20 04:33 Labs: Laboratory Results - last 24 hr 05/23/20 05/23/20 05/24/20 16:31 20:37 04:33 Sodium 132 L Potassium 3.7 D Chloride 101.2 Carbon Dioxide 18 L Anion Gap 17 BUN 26 H Creatinine 0.8 Estimated GFR > 60 BUN/Creatinine Ratio 33 Glucose 269 H POC Glucose 284 H 291 H Calcium 8.4 Phosphorus 3.30 Magnesium 1.70 05/24/20 05/24/20 07:43 11:07 Sodium Potassium Chloride Carbon Dioxide Anion Gap BUN Creatinine Estimated GFR BUN/Creatinine Ratio Glucose POC Glucose 278 H 344 H Calcium Phosphorus Magnesium
[2020-05-24] MEDS: PANTOPRAZOLE 40 MG TAB PO SCH (17:55)
[2020-05-24] MEDS: LORazepam 2 MG/ML VIAL IV PRN (23:47)
[2020-05-25 05:18] LABS: Hematocrit 22.4 % (35.5-45.6); Hemoglobin 7.6 gm/dl (11.8-15.2); Mean Corpuscular HGB Conc 34 % (32-34); Mean Corpuscular Volume 99 fl (84-94); Platelet Count 294 K/mm3 (140-440); Red Blood Count 2.28 M/mm3 (3.65-5.03); Red Cell Distribution Width 14.5 % (13.2-15.2)
[2020-05-25 05:23] LABS: Basophils % (Auto) 1.4 % (0.0-1.8); Eosinophils # (Auto) 0.3 K/mm3 (0.0-0.4); Eosinophils % (Auto) 4.8 % (0.0-4.3); Lymphocytes # (Auto) 1.8 K/mm3 (1.2-5.4); Lymphocytes % (Auto) 32.2 % (13.4-35.0); Monocytes # (Auto) 0.4 K/mm3 (0.0-0.8)
[2020-05-25 05:24] LABS: Basophils # (Auto) 0.1 K/mm3 (0.0-0.1)
[2020-05-25] MEDS: FLUDROCORTISONE 0.1 MG TAB PO SCH (10:11)
[2020-05-25] MEDS: SODIUM BICARBONATE 650 MG TAB PO SCH (10:13)
[2020-05-25] MEDS: INSULIN NPH/REGULAR 70/30 INJ SUB-Q SCH ×2 (10:13→16:47)
[2020-05-25] MEDS: PANTOPRAZOLE 40 MG TAB PO SCH ×2 (10:17→16:47)
[2020-05-25] MEDS: INSULIN LISPRO 100 UNIT/ML SUB-Q SCH ×3 (10:18→16:47)
--- NOTE | 2020-05-25 11:27 | Electrocardiograph Report ---
[facility] Test Date: 2020-05-20 Test Time: 09:24:56 Pat Name: ZEB HERNANDEZ Department: Room: A485 Gender: M Powder Core Tester: JAYLEN : 1985 Requested By: EMEKA THOMAS Order Number: [id number] Reading MD: Luis Enrique Pascual Measurements Intervals [place] Rate: 120 P: 59 NE: 136 QRS: 50 QRSD: 82 T: 34 QT: 319 QTc: 451 Interpretive Statements Sinus tachycardia Probable left atrial enlargement No previous ECG available for comparison Electronically Signed On 05-25-2020 11:27:12 EDT by Luis Enrique Pascual
--- NOTE | 2020-05-25 14:22 | Discharge Summary ---
Providers - Providers Date of Admission: 05/20/20 11:20 Date of discharge: 05/25/20 Attending physician: RIKKI LOPEZ 05/20/20 10:23 Consult to Case Management [CONS] Routine Services Needed at Discharge: Fibreglass Laminator Notified:: CASE MANAGEMENT 05/20/20 11:18 Consult to Physician [CONS] Stat Comment: Consulting Provider: KAYA HERNANDEZ Physician Instructions: Reason For Exam: Upper GI bleeding 05/20/20 17:53 Consult to Dietitian/Nutrition [CONS] Routine Physician Instructions: Reason For Exam: DKA Reason for Consult: Nutrition Recommendations Reason for Consult: Diet education Primary care physician: POLITICAL RESEARCHER Hospitalization Condition: Stable Disposition: DC-01 TO HOME OR SELFCARE Time spent for discharge: 35 min Core Measure Documentation - Palliative Care Palliative Care/ Comfort Measures: Not Applicable - Core Measures Any of the following diagnoses?: none Exam - Constitutional Vitals: Temp Pulse Resp BP Pulse Ox 97.9 F 90 18 113/51 97 05/25/20 11:41 05/25/20 11:41 05/25/20 11:41 05/25/20 11:41 05/25/20 11:41 Plan Activity: no restrictions Diet: diabetic Additional Instructions: Advised to see Dr. Fuller who is a specialist in diabetes as well as congenital adrenal hyperplasia. For further evaluation and management. Strongly advised to comply with medications, diabetic diet, exercise as tolerated and weight reduction. Advised to see GI Dr. Mcmahon in 1 week, to discuss about your biopsy reports. If you have worsening symptoms contact MD or go to the nearest emergency room as needed Follow up with: PRIMARY MD ROBERT [Primary Care Provider] - 7 Days ALIA FULLER MD [Staff Physician] - 7 Days EDGARDO MCMAHON MD [Staff Physician] - 7 Days Prescriptions: Fludrocortisone [Florinef] 0.2 mg PO QDAY 30 Days #30 tablet Pantoprazole [Protonix TAB] 40 mg PO BIDAC #60 tablet
--- NOTE | 2020-05-25 16:13 | Gastroenterology Progress Note ---
Assessment and Plan GI: anemia w/ esophageal ulcer on egd - f/u bx results - follow h/h - PPI qd - ok to dc from GI standpoint, will sign off, call if needed Subjective Date of service: 05/25/20 Interval history: - no sign bleeding overnight Objective - Constitutional Vitals: Temp Pulse Resp BP Pulse Ox 97.9 F 90 18 113/51 97 05/25/20 11:41 05/25/20 11:41 05/25/20 11:41 05/25/20 11:41 05/25/20 11:41 General appearance: no acute distress - EENT Eyes: PERRL - Respiratory Respiratory: bilateral: CTA - Cardiovascular Rhythm: regular Heart Sounds: Present: S1 & S2 - Gastrointestinal General gastrointestinal: Present: soft, non-tender, non-distended - Labs CBC & Chem 7: 05/25/20 04:38 05/24/20 04:33 Labs: Laboratory Results - last 24 hr 05/24/20 05/24/20 05/25/20 16:26 20:29 04:38 WBC 5.6 RBC 2.28 L Hgb 7.6 L Hct 22.4 L MCV 99 H MCH 34 H MCHC 34 RDW 14.5 Plt Count 294 Lymph % (Auto) 32.2 [place] % (Auto) 8.0 H Eos % (Auto) 4.8 H Baso % (Auto) 1.4 Lymph # (Auto) 1.8 [place] # (Auto) 0.4 Eos # (Auto) 0.3 Baso # (Auto) 0.1 Seg Neutrophils % 53.6 Seg Neutrophils # 3.0 POC Glucose 284 H 259 H 05/25/20 05/25/20 08:14 11:40 WBC RBC Hgb Hct MCV MCH MCHC RDW Plt Count Lymph % (Auto) [place] % (Auto) Eos % (Auto) Baso % (Auto) Lymph # (Auto) [place] # (Auto) Eos # (Auto) Baso # (Auto) Seg Neutrophils % Seg Neutrophils # POC Glucose 246 H 298 H
[2020-05-25 16:58] VITALS: BP 106/61
== END 2020-05-25 17:20 | disposition home or self-care (01) | DRG 380 ==
LOC: ED 07:50 → CC1 11:20 → 4A 05-22 17:28
PROVIDERS: ADMIT Internal Medicine; ATTEND Internal Medicine
PROC: 0DB48ZX Excision of Esophagogastric Junction, Via Natural or Artificial Opening Endoscopic, Diagnostic (ICD-10-PCS; principal; 2020-05-23)
PROC: 0DB68ZX Excision of Stomach, Via Natural or Artificial Opening Endoscopic, Diagnostic (ICD-10-PCS; 2020-05-23)
PROC: 0DB58ZX Excision of Esophagus, Via Natural or Artificial Opening Endoscopic, Diagnostic (ICD-10-PCS; 2020-05-23)
DX: K22.11 Ulcer of esophagus with bleeding (principal); N17.0 Acute kidney failure with tubular necrosis; E11.10 Type 2 diabetes mellitus with ketoacidosis without coma; E87.1 Hypo-osmolality and hyponatremia; Z68.42 Body mass index [BMI] 45.0-49.9, adult; K29.71 Gastritis, unspecified, with bleeding; K29.81 Duodenitis with bleeding; K43.2 Incisional hernia without obstruction or gangrene; E66.01 Morbid (severe) obesity due to excess calories; Z20.822 Contact with and (suspected) exposure to COVID-19; I10 Essential (primary) hypertension; G47.30 Sleep apnea, unspecified; F41.9 Anxiety disorder, unspecified; J45.909 Unspecified asthma, uncomplicated; D64.9 Anemia, unspecified; I95.9 Hypotension, unspecified; E87.5 Hyperkalemia; E86.0 Dehydration; R16.0 Hepatomegaly, not elsewhere classified; K21.9 Gastro-esophageal reflux disease without esophagitis
CPT/HCPCS: 36415; 71046; 74177; 76700; 80048; 80076; 81001; 82010; 82270; 82533; 82550; 82553; 82805; 82962; 83036; 83690; 83735; 83880; 84100; 84484; 85007; 85014; 85018; 85025; 85027; 85610; 85730; 86850; 86900; 86901; 87040; 87086; 88305; 88342; 93005; 96361; 96365; 96375; G0378; C9113; J0610; J1815; J2060; J2704; J3475; J7030; Q9967; U0003

== ENCOUNTER 2020-06-23 22:09 | Emergency (ER) | payer SELFPAY ==
[2020-06-23 22:19] VITALS: BP 144/50
--- NOTE | 2020-06-23 22:59 | XRay Report ---
RIGHT FOOT 2 VIEWS RIGHT ANKLE 2 VIEWS INDICATION / CLINICAL INFORMATION: Right foot and ankle pain with swelling. History of twisting injury of ankle. COMPARISON: None available. FINDINGS: RIGHT FOOT: BONES and JOINT(S): No acute fracture or subluxation. No significant arthritis. SOFT TISSUES: No significant abnormality. ADDITIONAL FINDINGS: None. RIGHT ANKLE: BONES and JOINT(S): No acute fracture or subluxation. No significant arthritis. SOFT TISSUES: No significant abnormality. ADDITIONAL FINDINGS: None. IMPRESSION: 1. No acute findings. Signer Name: Sunil Luciano MD Signed: 06/23/2020 10:55 PM Workstation Name: [id number][id number]
--- NOTE | 2020-06-23 23:22 | Emergency Department Report ---
ED Lower Extremity HPI - General Chief Complaint: Extremity Injury, Lower Stated Complaint: RT FOOT PAIN Time Seen by Provider: 06/23/20 23:04 Source: patient Mode of arrival: Ambulatory Limitations: No Limitations - History of Present Illness MD Complaint: foot injury -: Gradual, days(s) (Couple) Injury: Foot: Right Type of Injury: unknown (Was at work has foot sitting in awkward position thinks he might have twisted it when he had moved since that has been having pain and swelling and difficulty ambulation due to the discomfort.) Place: work Severity: moderate Associated Symptoms: swelling. denies: numbness, tingling Treatments Prior to Arrival: other (Tried icy hot with no improvement) - Related Data Home Medications Medication Instructions Recorded Confirmed Last Taken FLUoxetine HCL [FLUoxetine] 20 mg PO DAILY 05/22/20 05/22/20 Unknown lisinopriL [Lisinopril] 20 mg PO DAILY 05/22/20 05/22/20 Unknown Previous Rx's Medication Instructions Recorded Last Taken Type Fludrocortisone [Florinef] 0.2 mg PO QDAY 30 Days #30 tablet 05/25/20 Unknown Rx Insulin NPH/Regular [NovoLIN 70/30] 38 unit SUB-Q BIDDIAB 30 Days #2 05/25/20 Unknown Rx vial Insulin Regular, Human [Humulin R] See Protocol SC ACHS 30 Days #2 05/25/20 Unknown Rx vial Pantoprazole [Protonix TAB] 40 mg PO BIDAC #60 tablet 05/25/20 Unknown Rx Allergies Allergy/AdvReac Type Severity Reaction Status Date / Time Cephalosporins Allergy Intermediate Hives Verified 05/21/20 00:23 enoxaparin [From Lovenox] Allergy Rash Verified 05/20/20 08:36 ED Review of Systems ROS: Stated complaint: RT FOOT PAIN Other details as noted in HPI Comment: All other systems reviewed and negative ED Past Medical Hx - Past Medical History Previous Medical History?: Yes Hx Hypertension: Yes Hx Heart Attack/AMI: No Hx Diabetes: Yes (new onset) Hx GERD: Yes Hx Renal Disease: 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) Hx Psychiatric Treatment: Yes (Anxiety,depression) Hx Asthma: Yes (last inhaler use many years ago) Additional medical history: Congenital adrenal hyperplasia, Anxiety, Sleep apnea, Ulcer - Surgical History Past Surgical History?: Yes Additional Surgical History: Mesenteric venous thrombosis 2015 - Social History Smoking Status: Never Smoker Substance Use Type: None - Medications Home Medications: Home Medications Medication Instructions Recorded Confirmed Last Taken Type FLUoxetine HCL [FLUoxetine] 20 mg PO DAILY 05/22/20 05/22/20 Unknown History lisinopriL [Lisinopril] 20 mg PO DAILY 05/22/20 05/22/20 Unknown History Fludrocortisone [Florinef] 0.2 mg PO QDAY 30 Days #30 tablet 05/25/20 Unknown Rx Insulin NPH/Regular [NovoLIN 70/30] 38 unit SUB-Q BIDDIAB 30 Days #2 05/25/20 Unknown Rx vial Insulin Regular, Human [Humulin R] See Protocol SC ACHS 30 Days #2 05/25/20 Unknown Rx vial Pantoprazole [Protonix TAB] 40 mg PO BIDAC #60 tablet 05/25/20 Unknown Rx ED Physical Exam - General Limitations: No Limitations General appearance: alert, in no apparent distress - Head Head exam: Present: atraumatic, normocephalic - Eye Eye exam: Present: normal appearance, PERRL, EOMI Pupils: Present: normal accommodation - ENT ENT exam: Present: normal exam, normal orophraynx, mucous membranes moist - Neck Neck exam: Present: normal inspection, full ROM - Respiratory Respiratory exam: Present: normal lung sounds bilaterally. Absent: respiratory distress, wheezes, rales, chest wall tenderness, accessory muscle use - Cardiovascular Cardiovascular Exam: Present: regular rate, normal rhythm. Absent: systolic murmur, diastolic murmur, rubs, gallop - GI/Abdominal GI/Abdominal exam: Present: soft, normal bowel sounds. Absent: distended, tenderness, hyperactive bowel sounds, hypoactive bowel sounds - Rectal Rectal exam: Present: deferred - Extremities Exam Extremities exam: Present: normal inspection, tenderness, normal capillary refill, other (Tenderness to the Achilles tendon and the entire low tibiofibular ligament region of the foot. No tenderness at the base of the fifth metatarsal. Pulses 2+). Absent: pedal edema - Back Exam Back exam: Present: normal inspection. Absent: CVA tenderness (R), CVA tenderness (L) - Neurological Exam Neurological exam: Present: alert, oriented X3 - Psychiatric Psychiatric exam: Present: normal affect, normal mood - Skin Skin exam: Present: warm, dry, intact, normal color. Absent: rash ED Course Vital Signs 06/23/20 22:18 Temperature 98.6 F Pulse Rate 102 H Respiratory 18 Rate Blood Pressure 144/50 O2 Sat by Pulse 97 Oximetry ED Lower Extremity MDM - Radiology Data Radiology results: report reviewed [facility] [address] [place] [address] XRay Report Signed Patient: ZEB HERNANDEZ MR#: [id number] : 1985 Acct:[id number] Age/Sex: 35 / M ADM Date: 06/23/20 Loc: ED Attending Dr: Ordering Physician: FRANCHESCA JENKINS MD Date of Service: 06/23/20 Procedure(s): XR foot 2V RT Accession Number(s): [id number] cc: ED MD GREGORY Fluoro Time In Minutes: RIGHT FOOT 2 VIEWS RIGHT ANKLE 2 VIEWS INDICATION / CLINICAL INFORMATION: Right foot and ankle pain with swelling. History of twisting injury of ankle. COMPARISON: None available. FINDINGS: RIGHT FOOT: BONES and JOINT(S): No acute fracture or subluxation. No significant arthritis. SOFT TISSUES: No significant abnormality. ADDITIONAL FINDINGS: None. RIGHT ANKLE: BONES and JOINT(S): No acute fracture or subluxation. No significant arthritis. SOFT TISSUES: No significant abnormality. ADDITIONAL FINDINGS: None. IMPRESSION: 1. No acute findings. Signer Name: Sunil Luciano MD Signed: 06/23/2020 10:55 PM Workstation Name: [id number] Transcribed By: ILIANA Dictated By: Sunil Luciano MD Electronically Authenticated By: Sunil Luciano MD Signed Date/Time: 06/23/20 5462 DD/DT: 05 Critical care attestation.: If time is entered above; I have spent that time in minutes in the direct care of this critically ill patient, excluding procedure time. ED Disposition Clinical Impression: Foot pain, right Disposition: [id number] TO HOME OR SELFCARE Is pt being admited?: No Does the pt Need Aspirin: No Condition: Stable Instructions: How to Use Cold Therapy, [id number], Foot Sprain, Foot Pain Additional Instructions: Ice and elevate the as needed utilize anti-inflammatories or Tylenol and also Chas wrap for a neoprene ankle brace Referrals: TAHIR JONES MD [Primary Care Provider] - 3-5 Days LESLEE GARCIA MD [Staff Physician] - 3-5 Days
== END 2020-06-23 23:20 | disposition home or self-care (01) ==
LOC: ED 22:09
DX: M25.571 Pain in right ankle and joints of right foot (principal); I10 Essential (primary) hypertension; E11.9 Type 2 diabetes mellitus without complications; K21.9 Gastro-esophageal reflux disease without esophagitis; J45.909 Unspecified asthma, uncomplicated; Z98.890 Other specified postprocedural states; Z79.4 Long term (current) use of insulin; Z79.899 Other long term (current) drug therapy; Z88.8 Allergy status to other drugs, medicaments and biological substances
CPT/HCPCS: 82962